=== PATIENT | male | born 1955 | race Caucasian/White ===

== ENCOUNTER 2018-08-02 18:07 | Emergency (ER) | payer MEDICARE, BC ==
[2018-08-02] MEDS ORDERED: Sodium Chloride 0.9% 1000 ML 1,000 ML IV STA (18:44)
--- NOTE | 2018-08-02 18:52 | ERPHSYRPT ---
- History of Present Illness Source: patient, family Exam Limitations: no limitations Patient Subjective Stated Complaint: pt was sent down from [facility] for a near syncope episode while waiting to be seen. he states he has not felt well for a couple days, with chill, cough, aches,not eating well Triage Nursing Assessment: pt alert, resp easy, skin w/d/p. no edema, chest clear Timing/Duration: other (cough general malaise 2 days near syncope at [facility] just prior to arrival) Modifying Factors: Improves With: other (not eating well frequent cough) Associated Symptoms: shortness of breath, diaphoresis, cough, fever (low-grade temperature this Wednesday), loss of appetite, malaise, weakness, other (near syncopal episode at [facility]), No nausea, No vomiting, No abdominal pain, No heartburn, No chest pain, No headaches, No rash, No seizure Hx Tetanus, Diphtheria Vaccination/Date Given: (UNSURE) Hx Influenza Vaccination/Date Given: Yes Hx Pneumococcal Vaccination/Date Given: No Immunizations Up to Date: Yes <TATI KAMARA - Last Filed: 08/02/18 19:04> <VALENCIA GONZALEZ - Last Filed: 08/02/18 21:07> - History of Present Illness Time Seen by Provider: 08/02/18 18:39 Physician History: This is a 63-year-old white male with history of hyperlipidemia, high blood pressure, depression, pneumonia, bronchitis, kidney stones Patient is brought from [facility] patient apparently has been having a cough for approximately 2 days he has not been feeling well he's not been eating well , he's had a low-grade temperature . He denies any chest pain he apparently had a near syncopal episode at [facility]. He states he did not pass out he did not fall. He was promptly sent to the emergency room from [facility]. Past medical history includes hyperlipidemia, high blood pressure, pneumonia, bronchitis, kidney stones Past surgical history right ankle Social history rare alcohol denies tobacco or illicit drug use. Past medical history includes (TATI KAMARA) Pt is positive for Influenza A and Strep throat. Tamiflu 75mg and Amoxicillin 500mg were ordered in the ED. Prescriptions will be e-scribed, before pt's d/c. (VALENCIA GONZALEZ) Allergies/Adverse Reactions: Tetracyclines Allergy (Mild, Verified 08/02/18 18:19) Hives Home Medications: Allopurinol 100 mg [Zyloprim 100 mg] 100 mg PO DAILY 10/24/14 [History] Ascorbic Acid [Vitamin C] 1,000 mg PO DAILY 10/24/14 [History] Aspirin 81 gm Chew [Baby Aspirin 81 mg Chew] 81 mg PO DAILY 10/24/14 [ History] Finasteride 5 mg [Proscar 5 MG] 5 mg PO DAILY 10/24/14 [History] Furosemide 40 mg PO DAILY PRN PRN 10/24/14 [History] Lisinopril 10 mg [Zestril 10 MG] 10 mg PO DAILY 10/24/14 [History] Niacin 500 mg [Niaspan 500 mg] 500 mg PO DAILY 10/24/14 [History] - Review of Systems Constitutional: Fever, Malaise, Weakness, No Chills, No Fatigue, No Lethargy, No Night Sweats, No Weight Loss Eyes: No Symptoms Ears, Nose, & Throat: No Symptoms, No Ear Pain, No Ear Discharge, No Hearing Changes, No Tinnitus, No Nose Pain, No Nose Congestion, No Nose Discharge, No Sinus Drainage, No Epistaxis, No Mouth Pain, No Mouth Swelling, No Loose Teeth, No Throat Pain, No Throat Swelling, No Hoarse, No Painful Swallowing, No Snoring , No Stridor, No Other Respiratory: Cough, No Cyanosis, No Dyspnea, No Dyspnea on Exertion (WEISS), No Stridor, No Wheezing Cardiac: Other (near syncopal episode at [facility]), No Chest Pain, No Edema, No Syncope Abdominal/Gastrointestinal: Appetite Changes (decreased appetite), No Abdominal Pain, No Nausea, No Vomiting, No Diarrhea, No Constipation, No Hematemesis, No Hematochezia, No Melena, No Dysphagia Genitourinary Symptoms: No Dysuria Musculoskeletal: No Back Pain, No Neck Pain Skin: No Rash Neurological: Other (near syncopal episode at [facility]), No Focal Weakness, No Gait Changes, No Headache, No Irritability, No Lethargy, No Paralysis, No Parasthesia, No Seizure, No Sensory Changes, No Speech Changes, No Tics, No Tremors, No Vertigo Psychological: No Symptoms Endocrine: No Symptoms All Other Systems: Reviewed and Negative <TATI KAMARA - Last Filed: 08/02/18 19:04> - Past Medical History Pertinent Past Medical History: No Neurological History: No Pertinent History ENT History: No Pertinent History Cardiac History: High Cholesterol, Hypertension Respiratory History: Bronchitis, Pneumonia Endocrine Medical History: No Pertinent History Musculoskeletal History: No Pertinent History GI Medical History: No Pertinent History History: No Pertinent History Psycho-Social History: Depression Male Reproductive Disorders: No Pertinent History Other Medical History: kidney stones - Past Surgical History Past Surgical History: No Neuro Surgical History: No Pertinent History Cardiac: No Pertinent History Respiratory: No Pertinent History Gastrointestinal: No Pertinent History Genitourinary: No Pertinent History Musculoskeletal: Orthopedic Surgery Male Surgical History: No Pertinent History - Social History Smoking Status: Former smoker How long have you smoked: 40 Exposure to second hand smoke: No Drug Use: none Patient Lives Alone: No <TATI KAMARA - Last Filed: 08/02/18 19:04> - Physical Exam General Appearance: mild distress, alert, No moderate distress, No severe distress, No anxiety, No lethargy, No cachetic, No obese, No thin Eye Exam: PERRL/EOMI, eyes nml inspection Ears, Nose, Throat Exam: normal ENT inspection, TMs normal, pharynx normal, moist mucous membranes Neck Exam: normal inspection, non-tender, supple, full range of motion Respiratory Exam: normal breath sounds, lungs clear, No respiratory distress Cardiovascular Exam: regular rate/rhythm, normal heart sounds, normal peripheral pulses, capillary refill <2 sec Gastrointestinal/Abdomen Exam: soft, normal bowel sounds, No tenderness, No mass Back Exam: normal inspection, normal range of motion, No CVA tenderness, No vertebral tenderness Extremity Exam: normal inspection, normal range of motion, pelvis stable Neurologic Exam: alert, oriented x 3, cooperative, 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, normal mood/affect, nml cerebellar function, nml station & gait, sensation nml, No motor deficits Skin Exam: pale Lymphatic Exam: No adenopathy SpO2 Interpretation: normal (97%) SpO2: 97 <TATI KAMARA - Last Filed: 08/02/18 19:04> - Nursing Vital Signs Nursing Vital Signs: Initial Vital Signs Temperature 98.3 F 08/02/18 18:11 Pulse Rate 77 08/02/18 18:11 Respiratory Rate 18 08/02/18 18:11 Blood Pressure 114/78 08/02/18 18:11 O2 Sat by Pulse Oximetry 97 08/02/18 18:11 Pain Scale Pain Intensity 0 - Course Nursing assessment & vital signs reviewed: Yes EKG Interpreted by Me: RATE (77 bpm), Sinus Rhythm, Left [place] Deviation, Other ( EKG: Sinus rhythm, 77 bpm, left axis deviation, no acute ST or T wave changes noted) <TATI KAMARA - Last Filed: 08/02/18 19:04> Ordered Tests: Active Orders 24 hr Category Date Time Status EKG-ER Only STAT Care 08/02/18 18:44 Active IV Insertion STAT Care 08/02/18 18:44 Active Orthostatic Vital Signs STAT Care 08/02/18 18:46 Active CHEST 1 VIEW (PORTABLE) Stat Exams 08/02/18 18:45 Taken AMYLASE Stat Lab 08/02/18 18:50 Completed BLOOD CULTURE Stat Lab 08/02/18 19:05 Received CBC W DIFF Stat Lab 08/02/18 18:50 Completed CMP Stat Lab 08/02/18 18:50 Completed LIPASE Stat Lab 08/02/18 18:50 Completed Lactic Acid Stat Lab 08/02/18 18:44 Completed TROPONIN Q3H Lab 08/02/18 18:50 Completed TROPONIN Q3H Lab 08/02/18 21:45 Ordered TROPONIN Q3H Lab 08/03/18 00:45 Ordered TROPONIN Q3H Lab 08/03/18 03:45 Ordered TROPONIN Q3H Lab 08/03/18 06:45 Ordered UA W/RFX UR CULTURE Stat Lab 08/02/18 20:50 Received Medication Summary Discontinued Medications Generic Name Dose Route Start Last Admin Trade Name Freq PRN Reason Stop Dose Admin Amoxicillin 500 mg 08/02/18 20:01 08/02/18 20:22 Amoxil 500 Mg PO 08/02/18 20:02 500 mg STAT ONE Administration Sodium Chloride 1,000 mls @ 999 mls/hr 08/02/18 18:44 08/02/18 18:58 Sodium Chloride 0.9% 1000 Ml IV 08/02/18 19:44 999 mls/hr .Q1H1M STA Administration Sodium Chloride Confirm 08/02/18 18:56 Sodium Chloride 0.9% 1000 Ml Administered 08/02/18 18:57 Dose 1,000 mls @ ud .ROUTE .[facility] ONE Oseltamivir Phosphate 75 mg 08/02/18 20:03 08/02/18 20:37 Tamiflu 75mg Capsule PO 08/02/18 20:04 75 mg STAT ONE Administration Oseltamivir Phosphate Confirm 08/02/18 20:34 Tamiflu 75mg Capsule Administered 08/02/18 20:35 Dose 75 mg PO .[facility] ONE Lab/Rad Data: Laboratory Result Diagrams 08/02/18 18:50 08/02/18 18:50 Laboratory Results 08/02/18 08/02/18 08/02/18 Range/Units 19:00 18:50 18:50 WBC (4.0-10.5) K/mm3 RBC (4.1-5.6) M/mm3 Hgb (12.5-18.0) gm/dl Hct (42-50) % MCV (78-100) fl MCH (26-32) pg MCHC (32-36) g/dl RDW (11.5-14.0) % Plt Count (150-450) K/mm3 MPV (6-9.5) fl Gran % (36.0-66.0) % Eos # (Auto) (0-0.5) Absolute Lymphs (auto) (1.0-4.6) Absolute Monos (auto) (0.0-1.3) Lymphocytes % (24.0-44.0) % Monocytes % (0.0-12.0) % Eosinophils % (0.00-5.0) % Basophils % (0.0-0.4) % Absolute Granulocytes (1.4-6.9) Basophils # (0-0.4) Sodium 138 (137-145) mmol/L Potassium 3.5 (3.5-5.1) mmol/L Chloride 105 (98-107) mmol/L Carbon Dioxide 25 (22-30) mmol/L Anion Gap 12.3 (5-15) MEQ/L BUN 16 (9-20) mg/dL Creatinine 1.16 (0.66-1.25) mg/dL Estimated GFR > 60.0 ML/MIN Glucose 142 H (74-106) mg/dL Lactic Acid (0.4-2.0) Calcium 9.1 (8.4-10.2) mg/dL Total Bilirubin 0.80 (0.2-1.3) mg/dL AST 36 (17-59) U/L ALT 33 (0-50) U/L Alkaline Phosphatase 79 (38-126) U/L Troponin I < 0.012 (0.000-0.034) ng/mL Serum Total Protein 7.5 (6.3-8.2) g/dL Albumin 4.2 (3.5-5.0) g/dL Amylase 69 (30-110) U/L Lipase 81 (23-300) U/L Influenza Type A Ag POSITIVE (NEGATIVE) Influenza Type B Ag NEGATIVE (NEGATIVE) RSV (PCR) NEGATIVE (Negative) 08/02/18 08/02/18 Range/Units 18:50 18:44 WBC 3.0 L (4.0-10.5) K/mm3 RBC 5.01 (4.1-5.6) M/mm3 Hgb 16.2 (12.5-18.0) gm/dl Hct 46.7 (42-50) % MCV 93.2 (78-100) fl MCH 32.3 H (26-32) pg MCHC 34.7 (32-36) g/dl RDW 12.7 (11.5-14.0) % Plt Count 151 (150-450) K/mm3 MPV 9.8 H (6-9.5) fl Gran % 56.3 (36.0-66.0) % Eos # (Auto) 0.07 (0-0.5) Absolute Lymphs (auto) 0.86 L (1.0-4.6) Absolute Monos (auto) 0.38 (0.0-1.3) Lymphocytes % 28.5 (24.0-44.0) % Monocytes % 12.6 H (0.0-12.0) % Eosinophils % 2.3 (0.00-5.0) % Basophils % 0.3 (0.0-0.4) % Absolute Granulocytes 1.70 (1.4-6.9) Basophils # 0.01 (0-0.4) Sodium (137-145) mmol/L Potassium (3.5-5.1) mmol/L Chloride (98-107) mmol/L Carbon Dioxide (22-30) mmol/L Anion Gap (5-15) MEQ/L BUN (9-20) mg/dL Creatinine (0.66-1.25) mg/dL Estimated GFR ML/MIN Glucose (74-106) mg/dL Lactic Acid 1.5 (0.4-2.0) Calcium (8.4-10.2) mg/dL Total Bilirubin (0.2-1.3) mg/dL AST (17-59) U/L ALT (0-50) U/L Alkaline Phosphatase (38-126) U/L Troponin I (0.000-0.034) ng/mL Serum Total Protein (6.3-8.2) g/dL Albumin (3.5-5.0) g/dL Amylase (30-110) U/L Lipase (23-300) U/L Influenza Type A Ag (NEGATIVE) Influenza Type B Ag (NEGATIVE) RSV (PCR) (Negative) - Progress Progress: improved <TATI KAMARA - Last Filed: 08/02/18 19:04> - Progress Progress: unchanged Will see patient in: office Counseled pt/family regarding: lab results, need for follow-up <VALENCIA GONZALEZ - Last Filed: 08/02/18 21:07> - Progress Progress Note: 08/02/18 19:02 The patient's case is discussed with Dr. Gonzalez. She will assume the patient's care secondary to shift change. (TATI KAMARA) Pt's labs showed positive H1N1, and Strep pyogenes. Pt did get a dose of Amoxicillin 500mg and Tamiflu 75 mg at the ED, prior to d/c. 08/02/18 21:03 (VALENCIA GONZALEZ) <TATI KAMARA - Last Filed: 08/02/18 19:04> - Departure Time of Disposition: 21:04 Departure Disposition: Home Critical Care Time: No <VALENCIA GONZALEZ - Last Filed: 08/02/18 21:07> - Departure Clinical Impression: Influenza A (H1N1), Strep pharyngitis Condition: Stable Referrals: LUIS DANIEL [Primary Care Provider] - Additional Instructions: Pt's was informed about the need to give Tamiflu to all exposed family members, and to call her PCP for it. Prescriptions: Amoxicillin 500 mg PO TID 10 Days #30 capsule Oseltamivir 75 mg [Tamiflu 75MG Capsule] 75 mg PO BID 5 Days #10 cap
[2018-08-02 18:54] LABS: BASOPHIL % 0.3 % (0.0-0.4); Basophil (Absolute #) 0.01 (0-0.4); Eosinophil % 2.3 % (0.00-5.0); Eosinophil (Absolute #) 0.07 (0-0.5); Granulocytes % 56.3 % (36.0-66.0); Hematocrit 46.7 % (42-50); Hemoglobin 16.2 gm/dl (12.5-18.0); Lymphocyte (Absolute #) 0.86 (1.0-4.6); Lymphocytes % 28.5 % (24.0-44.0); Mean Cell Volume 93.2 fl (78-100); Mean Corpuscular Hemoglobin 32.3 pg (26-32); Mean Corpuscular Hgb Concent. 34.7 g/dl (32-36); Mean Platelet Volume 9.8 fl (6-9.5); Monocyte (Absolute #) 0.38 (0.0-1.3); Monocytes % 12.6 % (0.0-12.0); Platelet Count 151 K/mm3 (150-450); Red Blood Count 5.01 M/mm3 (4.1-5.6); Red Cell Distribution Width 12.7 % (11.5-14.0)
[2018-08-02] MEDS ORDERED: Sodium Chloride 0.9% 1000 ML 1,000 ML ONE (18:56)
[2018-08-02 18:59] LABS: ALBUMIN 4.2 g/dL (3.5-5.0); ALKALINE PHOSPHATASE 79 U/L (38-126); AMYLASE 69 U/L (30-110); ANION GAP 12.3 MEQ/L (5-15); BLOOD UREA NITROGEN 16 mg/dL (9-20); CHLORIDE 105 mmol/L (98-107); Calcium 9.1 mg/dL (8.4-10.2); Carbon Dioxide 25 mmol/L (22-30); Creatinine 1 1.16 mg/dL (0.66-1.25); Glucose 142 mg/dL (74-106); LIPASE 81 U/L (23-300); Potassium 3.5 mmol/L (3.5-5.1); SGOT/AST 36 U/L (17-59); SGPT/ALT 33 U/L (0-50); SODIUM 138 mmol/L (137-145); Total Protein 7.5 g/dL (6.3-8.2)
[2018-08-02 19:49] LABS: INFLUENZA B NEGATIVE (NEGATIVE); RESPIRATORY SYNCTIAL VIRUS NEGATIVE (Negative)
[2018-08-02] MEDS ORDERED: AMOXIL 500 MG PO ONE (20:01)
[2018-08-02 20:02] LABS: INFLUENZA A POSITIVE (NEGATIVE)
[2018-08-02] MEDS ORDERED: Tamiflu 75MG Capsule PO ONE ×2 (20:03→20:34)
[2018-08-02 21:08] LABS: Appearance SLIGHTLY CLOUDY (CLEAR); Bacteria NONE SEEN /HPF (NEGATIVE); Bilirubin NEGATIVE (NEGATIVE); Blood NEGATIVE Ery/ul (0-5); Glucose NEGATIVE (NEGATIVE); Ketones TRACE (NEGATIVE); Leukocyte Esterase NEGATIVE (NEGATIVE); Mucus SLIGHT /HPF (NEGATIVE); Nitrite NEGATIVE (NEGATIVE); Protein,Urine Dip NEGATIVE (Negative); RBC 0-2 /HPF (0-2); Urobilinogen 4 mg/dL (0-1)
[2018-08-02 21:20] VITALS: BP 134/81; PULSE 88; O2SAT 97
--- NOTE | 2018-08-03 09:12 | XRAY ---
Indication: Cough and weakness. Near syncopal episode. Comparison: October 24, 2014. Portable chest remains clear again with a few tiny calcified granulomas. Heart and mediastinal structures within normal limits. Bony thorax intact again with mild degenerative changes. Impression: Stable nonacute chest with chronic features.
== END 2018-08-02 21:22 | disposition home or self-care (01) ==
LOC: ED 18:07
DX: J10.1 Influenza due to other identified influenza virus with other respiratory manifestations (principal); J02.0 Streptococcal pharyngitis; I10 Essential (primary) hypertension; E78.00 Pure hypercholesterolemia, unspecified; F32.9 Major depressive disorder, single episode, unspecified; E78.5 Hyperlipidemia, unspecified; R06.02 Shortness of breath
CPT/HCPCS: 36000; 36415; 71045; 80053; 81001; 82150; 83605; 83690; 84484; 85025; 87040; 87631; 93005; 96360; 99284; A9270-GY

== ENCOUNTER 2019-08-05 16:53 | Emergency (ER) | payer MEDICARE, OTHER ==
[2019-08-05] MEDS ORDERED: solu-CORTEF 250MG IM STA (17:07)
[2019-08-05] MEDS ORDERED: BENADRYL 50 MG/ML IM ONE (17:08)
[2019-08-05] MEDS ORDERED: BENADRYL 50 MG/ML ONE (17:11)
[2019-08-05] MEDS ORDERED: solu-CORTEF 250MG ONE (17:11)
--- NOTE | 2019-08-05 17:21 | ERPHSYRPT ---
- History of Present Illness Time Seen by Provider: 08/05/19 17:19 Exam Limitations: no limitations Patient Subjective Stated Complaint: Pt states "I have been sick for about 6 days and I had a high fever the first day and I am exhausted and getting more and more tired. This morning my upper lip was swollen." Triage Nursing Assessment: Pt presented alert and oriented X 3, skin pwd Pt ambualtes with an upright steady gait, able to speak in clear full sentences pt upper lip swollen on the right side, pt denied any difficulty breathing. Physician History: Pt states "I have been sick for about 6 days and I had a high fever the first day and I am exhausted and getting more and more tired. This morning my upper lip was swollen." c/o feeling of throat swelling Timing/Duration: today (lip swelling), day(s) (fever and malaise) Severity: moderate Associated Symptoms: fever, headaches, malaise Allergies/Adverse Reactions: Tetracyclines Allergy (Mild, Verified 08/02/18 18:19) Hives Home Medications: Allopurinol 100 mg [Zyloprim 100 mg] 100 mg PO DAILY 10/24/14 [History] Ascorbic Acid [Vitamin C] 1,000 mg PO DAILY 10/24/14 [History] Aspirin 81 gm Chew [Baby Aspirin 81 mg Chew] 81 mg PO DAILY 10/24/14 [ History] Finasteride 5 mg [Proscar 5 MG] 5 mg PO DAILY 10/24/14 [History] Furosemide 40 mg PO DAILY PRN PRN 10/24/14 [History] Lisinopril 10 mg [Zestril 10 MG] 10 mg PO DAILY 10/24/14 [History] Niacin 500 mg [Niaspan 500 mg] 500 mg PO DAILY 10/24/14 [History] Sertraline HCl 25 mg PO DAILY 08/05/19 [History] Hx Tetanus, Diphtheria Vaccination/Date Given: No Hx Influenza Vaccination/Date Given: Yes Hx Pneumococcal Vaccination/Date Given: Yes Immunizations Up to Date: Yes - Review of Systems Constitutional: Fever, Fatigue, Malaise, No Chills Eyes: No Symptoms Ears, Nose, & Throat: Other (lip swelling) Respiratory: No Cough, No Dyspnea Cardiac: No Chest Pain, No Edema, No Syncope Abdominal/Gastrointestinal: No Abdominal Pain, No Nausea, No Vomiting, No Diarrhea Genitourinary Symptoms: No Dysuria Musculoskeletal: No Back Pain, No Neck Pain Skin: No Rash Neurological: No Dizziness, No Focal Weakness, No Sensory Changes Psychological: No Symptoms Endocrine: No Symptoms All Other Systems: Reviewed and Negative - Past Medical History Pertinent Past Medical History: Yes Neurological History: No Pertinent History ENT History: No Pertinent History Cardiac History: High Cholesterol, Hypertension Respiratory History: Bronchitis, Pneumonia Endocrine Medical History: No Pertinent History Musculoskeletal History: No Pertinent History GI Medical History: No Pertinent History History: No Pertinent History Psycho-Social History: Depression Male Reproductive Disorders: No Pertinent History Other Medical History: kidney stones - Past Surgical History Past Surgical History: Yes Neuro Surgical History: No Pertinent History Cardiac: No Pertinent History Respiratory: No Pertinent History Gastrointestinal: No Pertinent History Genitourinary: No Pertinent History Musculoskeletal: Orthopedic Surgery Male Surgical History: No Pertinent History - Social History Smoking Status: Former smoker How long have you smoked: 40 Exposure to second hand smoke: No Drug Use: none Patient Lives Alone: No - Nursing Vital Signs Nursing Vital Signs: Initial Vital Signs Temperature 98.0 F 08/05/19 17:04 Pulse Rate 98 H 08/05/19 17:04 Respiratory Rate 22 08/05/19 17:04 Blood Pressure 152/87 08/05/19 17:04 O2 Sat by Pulse Oximetry 96 08/05/19 17:04 Pain Scale Pain Intensity 0 - Physical Exam General Appearance: no apparent distress, alert Eye Exam: PERRL/EOMI, eyes nml inspection Ears, Nose, Throat Exam: normal ENT inspection, TMs normal, pharynx normal, moist mucous membranes, other (swollen right lower lip) Neck Exam: normal inspection, non-tender, supple, full range of motion Respiratory Exam: normal breath sounds, lungs clear, No respiratory distress Cardiovascular Exam: regular rate/rhythm, normal heart sounds, normal peripheral pulses Gastrointestinal/Abdomen Exam: soft, normal bowel sounds, No tenderness, No mass Back Exam: normal inspection, normal range of motion, No CVA tenderness, No vertebral tenderness Extremity Exam: normal inspection, normal range of motion, pelvis stable Neurologic Exam: alert, oriented x 3, cooperative, normal mood/affect, nml cerebellar function, nml station & gait, sensation nml, No motor deficits Skin Exam: normal color, warm, dry, No rash Lymphatic Exam: No adenopathy SpO2: 96 Ordered Tests: Active Orders 24 hr Category Date Time Status CBC W DIFF Stat Lab 08/05/19 17:21 Completed CMP Stat Lab 08/05/19 17:21 Completed Lactic Acid Stat Lab 08/05/19 18:25 Completed UA W/RFX UR CULTURE Stat Lab 08/05/19 17:58 Received Medication Summary Generic Name Dose Route Start Last Admin Trade Name Freq PRN Reason Stop Dose Admin Sodium Chloride 1,000 mls @ 999 mls/hr 08/05/19 18:18 08/05/19 18:26 Sodium Chloride 0.9% 1000 Ml IV 08/05/19 19:18 999 mls/hr .Q1H1M STA Administration Sodium Chloride 1,000 mls @ 100 mls/hr 08/05/19 18:30 Sodium Chloride 0.9% 1000 Ml IV 09/04/19 18:29 .Q10H LEONORA Sodium Chloride 1,000 mls @ 999 mls/hr 08/05/19 18:21 08/05/19 18:25 Sodium Chloride 0.9% 1000 Ml IV 08/05/19 19:21 Not Given .Q1H1M STA Discontinued Medications Generic Name Dose Route Start Last Admin Trade Name Freq PRN Reason Stop Dose Admin Diphenhydramine HCl 50 mg 08/05/19 17:08 08/05/19 17:16 Benadryl 50 Mg/Ml IM 08/05/19 17:09 50 mg STAT ONE Administration Diphenhydramine HCl Confirm 08/05/19 17:11 Benadryl 50 Mg/Ml Administered 08/05/19 17:12 Dose 50 mg .ROUTE .STK-MED ONE Hydrocortisone Sodium Succinate 250 mg 08/05/19 17:07 08/05/19 17:15 Solu-Cortef 250mg IM 08/05/19 17:08 250 mg Q6H STA Administration Hydrocortisone Sodium Succinate Confirm 08/05/19 17:11 Solu-Cortef 250mg Administered 08/05/19 17:12 Dose 250 mg .ROUTE .STK-MED ONE Potassium Bicarbonate 25 meq 08/05/19 18:31 K-Lyte 25 Meq PO 08/05/19 18:32 STAT ONE Lab/Rad Data: Laboratory Result Diagrams 08/05/19 17:21 08/05/19 17:21 Laboratory Results 08/05/19 08/05/19 08/05/19 Range/Units 18:25 17:58 17:21 WBC (4.0-10.5) K/mm3 RBC (4.1-5.6) M/mm3 Hgb (12.5-18.0) gm/dl Hct (42-50) % MCV (78-100) fl MCH (26-32) pg MCHC (32-36) g/dl RDW (11.5-14.0) % Plt Count (150-450) K/mm3 MPV (7.5-11.0) fl Gran % (36.0-66.0) % Eos # (Auto) (0-0.5) Absolute Lymphs (auto) (1.0-4.6) Absolute Monos (auto) (0.0-1.3) Lymphocytes % (24.0-44.0) % Monocytes % (0.0-12.0) % Eosinophils % (0.00-5.0) % Basophils % (0.0-0.4) % Absolute Granulocytes (1.4-6.9) Basophils # (0-0.4) Sodium 135 L (137-145) mmol/L Potassium 3.1 L (3.5-5.1) mmol/L Chloride 101 (98-107) mmol/L Carbon Dioxide 25 (22-30) mmol/L Anion Gap 12.5 (5-15) MEQ/L BUN 16 (9-20) mg/dL Creatinine 1.05 (0.66-1.25) mg/dL Estimated GFR > 60.0 ML/MIN Glucose 142 H (74-106) mg/dL Lactic Acid 1.6 (0.4-2.0) Calcium 8.6 (8.4-10.2) mg/dL Total Bilirubin 0.90 (0.2-1.3) mg/dL AST 30 (17-59) U/L ALT 33 (0-50) U/L Alkaline Phosphatase 81 (38-126) U/L Serum Total Protein 7.0 (6.3-8.2) g/dL Albumin 3.6 (3.5-5.0) g/dL Influenza Type A Ag NEGATIVE (NEGATIVE) Influenza Type B Ag NEGATIVE (NEGATIVE) RSV (PCR) NEGATIVE (Negative) Group A Strep Antibody NEGATIVE (NEGATIVE) 08/05/19 Range/Units 17:21 WBC 4.6 (4.0-10.5) K/mm3 RBC 5.05 (4.1-5.6) M/mm3 Hgb 15.9 (12.5-18.0) gm/dl Hct 45.6 (42-50) % MCV 90.3 (78-100) fl MCH 31.5 (26-32) pg MCHC 34.9 (32-36) g/dl RDW 12.9 (11.5-14.0) % Plt Count 170 (150-450) K/mm3 MPV 10.0 (7.5-11.0) fl Gran % 76.4 H (36.0-66.0) % Eos # (Auto) 0.30 (0-0.5) Absolute Lymphs (auto) 0.49 L (1.0-4.6) Absolute Monos (auto) 0.30 (0.0-1.3) Lymphocytes % 10.6 L (24.0-44.0) % Monocytes % 6.5 (0.0-12.0) % Eosinophils % 6.5 H (0.00-5.0) % Basophils % 0.0 (0.0-0.4) % Absolute Granulocytes 3.52 (1.4-6.9) Basophils # 0 (0-0.4) Sodium (137-145) mmol/L Potassium (3.5-5.1) mmol/L Chloride (98-107) mmol/L Carbon Dioxide (22-30) mmol/L Anion Gap (5-15) MEQ/L BUN (9-20) mg/dL Creatinine (0.66-1.25) mg/dL Estimated GFR ML/MIN Glucose (74-106) mg/dL Lactic Acid (0.4-2.0) Calcium (8.4-10.2) mg/dL Total Bilirubin (0.2-1.3) mg/dL AST (17-59) U/L ALT (0-50) U/L Alkaline Phosphatase (38-126) U/L Serum Total Protein (6.3-8.2) g/dL Albumin (3.5-5.0) g/dL Influenza Type A Ag (NEGATIVE) Influenza Type B Ag (NEGATIVE) RSV (PCR) (Negative) Group A Strep Antibody (NEGATIVE) - Departure Departure Disposition: Home Clinical Impression: Acute allergic reaction Qualifiers: Encounter type: initial encounter Qualified Code(s): T78.40XA - Allergy, unspecified, initial encounter Allergic angioedema Qualifiers: Encounter type: initial encounter Qualified Code(s): T78.3XXA - Angioneurotic edema, initial encounter Condition: Stable Critical Care Time: No Referrals: ULIS DANIEL [Primary Care Provider] - Instructions: Angioedema, Angioedema (DC), Adverse Drug Reactions, Adult (DC) Additional Instructions: You have adverse drug reaction due to lisinopril which has caused swelling of your lips please hold lisinopril until you see your primary care physician on Wednesday. Please take Benadryl 25 mg every 4 hours if you develop more lip swelling and hives. We have send Medrol Dosepak for you to the pharmacy, which you can pick it up tomorrow. If your symptoms get worse or if you have a difficulty in breathing. Please come back to the emergency room. Discharge/Care Plan JULIEN BULL was seen on 08/05/19 in the Emergency Room. The patient was counseled regarding Diagnosis,Lab results, Imaging studies, need for follow up and when to return to the Emergency Room. Prescriptions given: Discharge Note I have spoken with the patient and/or caregivers. I have explained the patient' s condition, diagnosis and treatment plan based on the information available to me at this time. I have answered the patient's and/or caregiver's questions and addressed any concerns. The patient and/or caregivers have as good understanding of the patient's diagnosis, condition and treatment plan as can be expected at this point. The vital signs have been stable. The patient's condition is stable and appropriate for discharge from the emergency department. The patient will pursue further outpatient evaluation with the primary care physician or other designated or consulting physician as outlined in the discharge instructions. The patient and/or caregivers are agreeable to this plan of care and follow-up instructions have been explained in detail. The patient and/or caregivers have received these instruction. The patient/and or caregivers are aware that any significant change in condition or worsening of symptoms should prompt an immediate return to this or the closest emergency department or call 911. JULIEN BULL was seen on 08/05/19 n the Emergency Room. At that time you were treated for an emergent condition, during your visit Laboratory, Radiology and/or other procedures may have been ordered. It is very important that you follow-up with your Primary Care Physician LUIS DANIEL within the next 24-48 hours to review your Emergency Room visit and the final results of testing that was ordered. Some test results such as Urine Cultures, Blood Cultures, and other cultures if ordered will not be finalized for 24-48 hours. If you do not have a Primary Care Provider please call the medical records department at [phone] ext [phone] to obtain a copy of your results or you may sign into our patient portal to obtain these results by visiting us @ [email or web address] and completing the following steps: 1. Click on the Patient Portal link 2. Click the Patient Self Enrollment Link to complete the enrollment form and entering your 3. Once the enrollment form is completed you will receive an email with a temporary ID and password at the email address you provided. 4. Next choose a user name and password. Your user name must be at least 4 characters long and your password must be at least 4 characters long. 5. Choose a security question from the list and provide your answer to the question. If you already have signed into the Health Portal you may access your Health Care Information 25/01 by the following steps: 1. Login to our website @ [email or web address] 2. Enter your original user name and password. FAQS The [facility] Health Portal is an online tool that contains your Lab Results, Radiology Reports, Visit History, Discharge Instructions and Health Summary Lab and Radiology Results will not be available for 72 hours on the portal. The Portal is a secure site, passwords are encryted and URLs are re-written so they cannot be copied and pasted. You and authorized family members are the only ones who can access your Portal. Also there is a timeout feature that protects your information if you leave the Portal page open. If you have technical difficulty please use the Contact Us link on the page this will allow you to submit any questions you have regarding the Portal or you may contact the Medical Record Department at [phone] ext [phone]. Prescriptions: Methylprednisolone Packet [Medrol Dosepack] 4 mg PO UD #30 packet
[2019-08-05 18:00] LABS: Absolute Neutrophil Ct (ANC) 3.52 (1.4-6.9); Basophil (Absolute #) 0 (0-0.4); Eosinophil % 6.5 % (0.00-5.0); Hematocrit 45.6 % (42-50); Hemoglobin 15.9 gm/dl (12.5-18.0); Lymphocyte (Absolute #) 0.49 (1.0-4.6); Lymphocytes % 10.6 % (24.0-44.0); Mean Cell Volume 90.3 fl (78-100); Mean Corpuscular Hemoglobin 31.5 pg (26-32); Mean Corpuscular Hgb Concent. 34.9 g/dl (32-36); Monocytes % 6.5 % (0.0-12.0); Neutrophil % 76.4 % (36.0-66.0); Platelet Count 170 K/mm3 (150-450); Red Blood Count 5.05 M/mm3 (4.1-5.6); Red Cell Distribution Width 12.9 % (11.5-14.0); White Blood Count 4.6 K/mm3 (4.0-10.5)
[2019-08-05 18:13] LABS: ALBUMIN 3.6 g/dL (3.5-5.0); ALKALINE PHOSPHATASE 81 U/L (38-126); ANION GAP 12.5 MEQ/L (5-15); BLOOD UREA NITROGEN 16 mg/dL (9-20); CHLORIDE 101 mmol/L (98-107); Calcium 8.6 mg/dL (8.4-10.2); Carbon Dioxide 25 mmol/L (22-30); Creatinine 1 1.05 mg/dL (0.66-1.25); Glucose 142 mg/dL (74-106); Potassium 3.1 mmol/L (3.5-5.1); SGOT/AST 30 U/L (17-59); SGPT/ALT 33 U/L (0-50); SODIUM 135 mmol/L (137-145)
[2019-08-05] MEDS ORDERED: Sodium Chloride 0.9% 1000 ML 1,000 ML IV STA ×2 (18:18→18:21)
[2019-08-05] MEDS ORDERED: Sodium Chloride 0.9% 1000 ML 1,000 ML ONE ×2 (18:22→18:56)
[2019-08-05] MEDS ORDERED: K-LYTE 25 MEQ PO ONE (18:31)
[2019-08-05 18:42] LABS: INFLUENZA A NEGATIVE (NEGATIVE); INFLUENZA B NEGATIVE (NEGATIVE); RESPIRATORY SYNCTIAL VIRUS NEGATIVE (Negative)
[2019-08-05] MEDS ORDERED: K-LYTE 25 MEQ ONE (18:56)
[2019-08-05 19:00] LABS: Appearance CLOUDY (CLEAR); Bilirubin NEGATIVE (NEGATIVE); Blood MODERATE Ery/ul (0-5); Epithelial Cells RARE /HPF (FEW); Glucose NEGATIVE (NEGATIVE); Ketones NEGATIVE (NEGATIVE); Leukocyte Esterase NEGATIVE (NEGATIVE); Mucus MANY /HPF (NEGATIVE); Nitrite NEGATIVE (NEGATIVE); Protein,Urine Dip 100 (Negative); Specific Gravity 1.028 (1.005-1.025); Urobilinogen 4 mg/dL (0-1)
[2019-08-05] MEDS: Sodium Chloride 0.9% 1000 ML 1,000 ML IV SCH ×2 (19:08→19:37)
[2019-08-05 19:13] VITALS: O2SAT 98
[2019-08-05 19:43] LABS: RBC >101 /HPF (0-2)
[2019-08-05 19:53] VITALS: BP 128/81; PULSE 74
[2019-08-06 01:22] LABS: Slide Review 1 YES
== END 2019-08-05 20:03 | disposition home or self-care (01) ==
LOC: ED 16:53
DX: T78.40XA Allergy, unspecified, initial encounter (principal); T78.3XXA Angioneurotic edema, initial encounter; I10 Essential (primary) hypertension; E78.00 Pure hypercholesterolemia, unspecified; Z79.899 Other long term (current) drug therapy
CPT/HCPCS: 36000; 36415; 80053; 81001; 83605; 85025; 87086; 87631; 87651; 96360; 96361; 96372; 99284; J1200; J1720; A9270-GY

== ENCOUNTER 2019-11-07 14:27 | Emergency (ER) | payer MEDICARE, OTHER ==
[2019-11-07] MEDS ORDERED: Pepcid 20 MG VIAL IV ONE ×2 (14:37→14:45)
[2019-11-07] MEDS ORDERED: BENADRYL 50 MG/ML ONE (14:37)
[2019-11-07] MEDS ORDERED: PROVENTIL 2.5 MG/3 ML NEB IH ONE (14:38)
[2019-11-07] MEDS ORDERED: solu-MEDROL 125 MG ONE (14:38)
[2019-11-07] MEDS ORDERED: BENADRYL 50 MG/ML IV ONE (14:45)
[2019-11-07] MEDS ORDERED: solu-MEDROL 125 MG IV ONE (14:45)
[2019-11-07] MEDS ORDERED: PROVENTIL 2.5 MG/3 ML NEB IH SCH (15:00)
--- NOTE | 2019-11-07 15:06 | ERPHSYRPT ---
- History of Present Illness Time Seen by Provider: 11/07/19 14:33 Source: patient Exam Limitations: no limitations Patient Subjective Stated Complaint: Pt states "This happened before and they took me off my lisinopril and put me on verapamyl. About 11 am this morning my lip started to swell, my voice got scratcy and I am itchy." Triage Nursing Assessment: Pt presnted alert and oriented X 3, skin pwd PT ambulates with an upright steady gait, able to speak in clear full sentences. Pt voice deep and scratcy, pt clearing throat often. Pt upper lip swollen more on the left htan the right. Physician History: 64 years old male with history of hypertension, hyperlipidemia, gout presented in the ER with chief complaint of left upper lip swelling sudden onset around 11 AM today and gradually worsening. Is also having some scratchiness in the throat and some raspy voice. Denies any difficulty breathing though. Patient reports having similar symptoms few months back and was taken off of lisinopril , started on verapamil at that time. He denies any swelling of tongue or floor of mouth. Timing/Duration: today, sudden, worse Severity: moderate Modifying Factors: Improves With: nothing Associated Symptoms: denies symptoms Allergies/Adverse Reactions: Tetracyclines Allergy (Mild, Verified 08/02/18 18:19) Hives lisinopril Adverse Reaction (Severe, Verified 11/07/19 14:43) Swelling of Face Home Medications: Allopurinol 100 mg [Zyloprim 100 mg] 100 mg PO DAILY 10/24/14 [History] Ascorbic Acid [Vitamin C] 1,000 mg PO DAILY 10/24/14 [History] Aspirin 81 gm Chew [Baby Aspirin 81 mg Chew] 81 mg PO DAILY 10/24/14 [ History] Finasteride 5 mg [Proscar 5 MG] 5 mg PO DAILY 10/24/14 [History] Niacin 500 mg [Niaspan 500 mg] 500 mg PO DAILY 10/24/14 [History] Sertraline HCl 25 mg PO DAILY 08/05/19 [History] Verapamil HCl [Verapamil ER] 120 mg PO DAILY 11/07/19 [History] Hx Tetanus, Diphtheria Vaccination/Date Given: No Hx Influenza Vaccination/Date Given: Yes Hx Pneumococcal Vaccination/Date Given: Yes Immunizations Up to Date: Yes Travel Risk - International Travel Have you traveled outside of the country in past 3 weeks: No Have you or anyone close to you been diagnosed with or: No Do your reside in a community with a known COVID-19 case?: Yes If Yes where:: [place] - Coronavirus Screening Has patient experienced Coronavirus symptoms: No - Review of Systems Constitutional: No Symptoms Eyes: No Symptoms Ears, Nose, & Throat: No Symptoms Respiratory: Wheezing Cardiac: No Symptoms Abdominal/Gastrointestinal: No Symptoms Genitourinary Symptoms: No Symptoms Musculoskeletal: No Symptoms Skin: No Symptoms Neurological: No Symptoms Psychological: No Symptoms Endocrine: No Symptoms Hematologic/Lymphatic: No Symptoms Immunological/Allergic: No Symptoms - Past Medical History Pertinent Past Medical History: Yes Neurological History: No Pertinent History ENT History: No Pertinent History Cardiac History: High Cholesterol, Hypertension Respiratory History: Bronchitis, Pneumonia Endocrine Medical History: No Pertinent History Musculoskeletal History: No Pertinent History GI Medical History: No Pertinent History History: No Pertinent History Psycho-Social History: Depression Male Reproductive Disorders: No Pertinent History Other Medical History: kidney stones - Past Surgical History Past Surgical History: Yes Neuro Surgical History: No Pertinent History Cardiac: No Pertinent History Respiratory: No Pertinent History Gastrointestinal: No Pertinent History Genitourinary: No Pertinent History Musculoskeletal: Orthopedic Surgery Male Surgical History: No Pertinent History - Social History Smoking Status: Former smoker How long have you smoked: 40 Exposure to second hand smoke: No Drug Use: none Patient Lives Alone: No - Nursing Vital Signs Nursing Vital Signs: Initial Vital Signs Temperature 97.8 F 11/07/19 14:32 Pulse Rate 70 11/07/19 14:32 Respiratory Rate 20 11/07/19 14:32 Blood Pressure 155/80 11/07/19 14:32 O2 Sat by Pulse Oximetry 98 11/07/19 14:32 Pain Scale Pain Intensity 0 - Physical Exam General Appearance: no apparent distress Eye Exam: PERRL/EOMI, eyes nml inspection Ears, Nose, Throat Exam: TMs normal, pharynx normal, other (Moderate swelling left upper lip. No swelling of tongue, tonsillar pillar or uvula. Posterior pharynx well visible.) Neck Exam: normal inspection Respiratory Exam: normal breath sounds, lungs clear Cardiovascular Exam: regular rate/rhythm, normal heart sounds Gastrointestinal/Abdomen Exam: soft Extremity Exam: normal inspection Neurologic Exam: alert, oriented x 3, cooperative Skin Exam: normal color SpO2 Interpretation: normal SpO2: 98 O2 Delivery: Room Air - Course Nursing assessment & vital signs reviewed: Yes Ordered Tests: Active Orders 24 hr Category Date Time Status Respiratory Therapy Assessment ONCE RT 11/07/19 14:44 Active Medication Summary Discontinued Medications Generic Name Dose Route Start Last Admin Trade Name Jeronimoq PRN Reason Stop Dose Admin Albuterol Sulfate Confirm 11/07/19 14:38 Proventil 2.5 Mg/3 Ml Neb Administered 11/07/19 14:39 Dose 2.5 mg IH .STK-MED ONE Albuterol Sulfate 2.5 mg 11/07/19 15:00 11/07/19 14:40 Proventil 2.5 Mg/3 Ml Neb IH 12/07/19 14:59 2.5 mg Q4HRT LEONORA Administration Diphenhydramine HCl Confirm 11/07/19 14:37 Benadryl 50 Mg/Ml Administered 11/07/19 14:38 Dose 50 mg .ROUTE .STK-MED ONE Diphenhydramine HCl 25 mg 11/07/19 14:45 11/07/19 14:48 Benadryl 50 Mg/Ml IV 11/07/19 14:46 25 mg STAT ONE Administration Epinephrine 0.5 ml 11/07/19 15:52 11/07/19 15:53 Racepinephrine Inh Solution 2.25% IH 11/07/19 15:53 0.5 ml STAT ONE Administration Epinephrine Confirm 11/07/19 15:51 Racepinephrine Inh Solution 2.25% Administered 11/07/19 15:52 Dose 0.5 ml IH .STK-MED ONE Famotidine Confirm 11/07/19 14:37 Pepcid 20 Mg Vial Administered 11/07/19 14:38 Dose 40 mg IV .STK-MED ONE Famotidine 40 mg 11/07/19 14:45 11/07/19 14:47 Pepcid 20 Mg Vial IV 11/07/19 14:46 40 mg STAT ONE Administration Methylprednisolone Sodium Succinate Confirm 11/07/19 14:38 Solu-Medrol 125 Mg Administered 11/07/19 14:39 Dose 125 mg .ROUTE .STK-MED ONE Methylprednisolone Sodium Succinate 125 mg 11/07/19 14:45 11/07/19 14:48 Solu-Medrol 125 Mg IV 11/07/19 14:46 125 mg STAT ONE Administration Sodium Chloride Confirm 11/07/19 15:51 Sodium Chloride 3 Ml Ud Nebules Administered 11/07/19 15:52 Dose 3 ml IH .STK-MED ONE - Progress Progress: improved, re-examined Progress Note: 64 years old is evaluated for upper lip swelling on the left side. He had a subjective feeling of sort nurse in the throat and difficulty breathing and given albuterol neb treatment followed by racemic epi along with Solu-Medrol/ Benadryl/Pepcid. Swelling is improved. No swelling of the tongue. Patient is observed for more than 4 hours with no rebound or increase in the swelling or difficulty breathing noticed. Patient is evaluated multiple times and did not show any signs of worsening. Patient is been taking verapamil which is probably linked with angioedema. He is advised to stop taking verapamil and call his doctor in the morning to be switched to a different antihypertensive. Patient did not have any lower lip per floor of mouth swelling are signs showing compromised airway and I think he is stable for discharge with outpatient follow-up. Discussed signs symptoms of worsening needing return to ER which he seems understanding. 11/07/19 18:40 Counseled pt/family regarding: diagnosis, need for follow-up - Departure Departure Disposition: Home Clinical Impression: Allergic angioedema Qualifiers: Encounter type: initial encounter Qualified Code(s): T78.3XXA - Angioneurotic edema, initial encounter Condition: Stable Critical Care Time: Yes Critical Care Time(excluding separately billable procedures): Critical 30-74 mins Referrals: LUIS DANIEL [Primary Care Provider] - (1 day for reevaluation) Instructions: Angioedema (DC) Additional Instructions: Stop taking verapamil. Call your doctor in the morning to discuss medication and may need to be started on a new blood pressure medication. Continue with antiallergic medication and steroids. Return to ER for increasing swelling of lip, tongue,'s throat swelling/scratchiness/difficulty breathing etc. Prescriptions: Diphenhydramine HCl [Benadryl Allergy] 25 mg PO Q6HPRN PRN #20 tablet PRN Reason: Allergies Albuterol 8 gm Mdi Hfa [Ventolin Hfa MDI] 8 gm IH Q4H #1 hfa.aer.ad Famotidine 20 mg [Pepcid 20 MG] 20 mg PO BID #10 tablet predniSONE [Prednisone] 50 mg PO DAILY #5 tablet
[2019-11-07] MEDS ORDERED: Sodium Chloride 3 ML UD NEBULES IH ONE (15:51)
[2019-11-07] MEDS ORDERED: Racepinephrine INH Solution 2.25% IH ONE ×2 (15:51→15:52)
[2019-11-07 18:40] VITALS: O2SAT 98
[2019-11-07 18:41] VITALS: BP 117/75; PULSE 70
== END 2019-11-07 18:49 | disposition home or self-care (01) ==
LOC: ED 14:27
DX: T78.3XXA Angioneurotic edema, initial encounter (principal); I10 Essential (primary) hypertension; E78.5 Hyperlipidemia, unspecified; M10.9 Gout, unspecified; Z79.899 Other long term (current) drug therapy; Z87.442 Personal history of urinary calculi
CPT/HCPCS: 36000; 94640; 96374; 96375; 99284; 99291; J1200; J2930; J7609; A9270-GY

== ENCOUNTER 2021-02-24 16:45 | Observation (INO) | payer MEDICARE, OTHER ==
--- NOTE | 2021-02-24 16:51 | ERPHSYRPT ---
- History of Present Illness Time Seen by Provider: 02/24/21 16:51 Physician History: This is a 65-year-old white male who has recently been tested positive for COVID-19 infection. He was supposed to be off of quarantine today. However, he has weakness, generalized aches and pains and his states there is a little more confusion than usual. Patient has a history of hypertension and elevated cholesterol. Patient denies chest pain. He has very little shortness of breath. He has mild cough. He has no localized abdominal pain. He has had no nausea vomiting or diarrhea. His main issue is his generalized aches and pains. Timing/Duration: day(s) Activities at Onset: none Severity of Dyspnea-Max: mild Severity of Dyspnea-Current: mild Modifying Factors: Improves With: coughing (Mild) Associated Symptoms: cough, loss of appetite, weakness, No chest pain/discomfort Allergies/Adverse Reactions: Tetracyclines Allergy (Mild, Verified 02/24/21 17:24) Hives lisinopril Adverse Reaction (Severe, Verified 02/24/21 17:24) Swelling of Face Hx Tetanus, Diphtheria Vaccination/Date Given: No Hx Influenza Vaccination/Date Given: Yes Hx Pneumococcal Vaccination/Date Given: Yes Travel Risk - International Travel Have you traveled outside of the country in past 3 weeks: No - Coronavirus Screening Are you exhibiting any of the following symptoms?: Yes Symptoms: Shortness of Breath, Headaches/Body Aches/Fatigue - Vaccine Status Have you recieved a Covid-19 vaccination: No - Review of Systems Constitutional: Weakness Eyes: No Symptoms Ears, Nose, & Throat: No Symptoms Respiratory: No Symptoms Cardiac: No Symptoms Abdominal/Gastrointestinal: No Symptoms Genitourinary Symptoms: No Symptoms Musculoskeletal: Arthralgias, Myalgias Skin: No Symptoms Neurological: No Symptoms Psychological: No Symptoms Endocrine: No Symptoms Hematologic/Lymphatic: No Symptoms Immunological/Allergic: No Symptoms All Other Systems: Reviewed and Negative - Past Medical History Pertinent Past Medical History: Yes Neurological History: No Pertinent History ENT History: No Pertinent History Cardiac History: High Cholesterol, Hypertension Respiratory History: Bronchitis, Pneumonia Endocrine Medical History: No Pertinent History Musculoskeletal History: No Pertinent History GI Medical History: No Pertinent History History: No Pertinent History Psycho-Social History: Depression Male Reproductive Disorders: No Pertinent History Other Medical History: kidney stones - Past Surgical History Past Surgical History: Yes Neuro Surgical History: No Pertinent History Cardiac: No Pertinent History Respiratory: No Pertinent History Gastrointestinal: No Pertinent History Genitourinary: No Pertinent History Musculoskeletal: Orthopedic Surgery Male Surgical History: No Pertinent History - Social History Smoking Status: Former smoker How long have you smoked: 40 Exposure to second hand smoke: No Drug Use: none Patient Lives Alone: No - Nursing Vital Signs Nursing Vital Signs: Initial Vital Signs O2 Sat by Pulse Oximetry 95 02/24/21 16:45 Pain Scale Pain Intensity 3 - Physical Exam General Appearance: mild distress, alert, anxiety Eye Exam: PERRL/EOMI, eyes nml inspection Ears, Nose, Throat Exam: hearing grossly normal Neck Exam: normal inspection, non-tender, supple, full range of motion Respiratory Exam: normal breath sounds, lungs clear, airway intact, No chest tenderness, No respiratory distress Cardiovascular/Chest Exam: normal heart sounds, regular rate/rhythm Abdominal/Gastrointestinal Exam: soft, normal bowel sounds, No tenderness, No guarding Rectal Exam: not done Extremity Exam: non-tender, normal range of motion, normal inspection Neurologic Exam: alert, oriented x 3, cooperative, waist presser II-XII nml as tested Skin Exam: normal color, warm, dry Lymphatic Exam: No adenopathy SpO2 Interpretation: borderline oxygenation O2 Delivery: Room Air - Course Nursing assessment & vital signs reviewed: Yes EKG Interpreted by Me: RATE (54), Sinus Rhythm, NORMAL AXIS, LAFB, NORMAL INTERVALS, NORMAL QRS, NORMAL ST-T, Other (No acute ischemic changes on today's EKG. There is a new left anterior fascicular block when compared to EKG on 08/02/2018.) Ordered Tests: Active Orders 24 hr Category Date Time Status Coarse Wire Drawer STAT Care 02/24/21 17:05 Active EKG-ER Only STAT Care 02/24/21 17:04 Active IV Insertion STAT Care 02/24/21 17:04 Active Pulse Oximetry (ED) STAT Care 02/24/21 17:07 Active CHEST 1 VIEW (PORTABLE) Stat Exams 02/24/21 17:04 Taken ABG [ARTERIAL BLOOD GASES] Stat Lab 02/24/21 17:30 Completed BLOOD CULTURE Stat Lab 02/24/21 17:00 Received CBC W DIFF Stat Lab 02/24/21 17:00 Completed CMP Stat Lab 02/24/21 17:00 Completed INFLUENZA A+B GENNA Stat Lab 02/24/21 17:04 Completed Lactic Acid Stat Lab 02/24/21 17:35 Completed Lactic Acid Stat Lab 02/24/21 19:37 Completed MAGNESIUM Stat Lab 02/24/21 17:00 Completed [place] Screen Stat Lab 02/24/21 19:00 Completed NT PRO BNP Stat Lab 02/24/21 17:00 Completed TROPONIN Q3H Lab 02/24/21 17:00 Completed TROPONIN Q3H Lab 02/24/21 20:09 Received TROPONIN Q3H Lab 02/24/21 23:15 Ordered TROPONIN Q3H Lab 02/25/21 02:15 Ordered TROPONIN Q3H Lab 02/25/21 05:15 Ordered UA W/RFX UR CULTURE Stat Lab 02/24/21 17:07 Ordered Transfer Order Routine Transfer 02/24/21 Ordered Medication Summary Generic Name Dose Route Start Last Admin Trade Name Freq PRN Reason Stop Dose Admin Sodium Chloride 1,000 mls @ 50 mls/hr 02/24/21 17:15 02/24/21 17:36 Sodium Chloride 0.9% 1000 Ml IV 03/26/21 17:14 50 mls/hr .Q20H LEONORA Administration Discontinued Medications Generic Name Dose Route Start Last Admin Trade Name Freq PRN Reason Stop Dose Admin Hydrocodone Bitart/Acetaminophen 15 ml 02/24/21 20:30 Hydrocodone-Acetamin 2.5-108/5 Ml Solution PO 02/24/21 20:31 STAT STA Dexamethasone Sodium Phosphate 8 mg 02/24/21 20:30 Decadron 4 Mg Inj IV 02/24/21 20:31 STAT ONE Enoxaparin Sodium 40 mg 02/24/21 20:30 Enoxaparin Sodium SQ 02/24/21 20:31 STAT ONE Lab/Rad Data: Laboratory Result Diagrams 02/24/21 17:00 02/24/21 17:00 Laboratory Results 02/24/21 02/24/21 02/24/21 Range/Units 19:37 19:00 17:35 WBC (4.0-10.5) K/mm3 RBC (4.1-5.6) M/mm3 Hgb (12.5-18.0) gm/dl Hct (42-50) % MCV (78-100) fl MCH (26-32) pg MCHC (32-36) g/dl RDW (11.5-14.0) % Plt Count (150-450) K/mm3 MPV (7.5-11.0) fl Gran % (36.0-66.0) % Eos # (Auto) (0-0.5) Absolute Lymphs (auto) (1.0-4.6) Absolute Monos (auto) (0.0-1.3) Lymphocytes % (24.0-44.0) % Monocytes % (0.0-12.0) % Eosinophils % (0.00-5.0) % Basophils % (0.0-0.4) % Absolute Granulocytes (1.4-6.9) Basophils # (0-0.4) Puncture Site pCO2 (35-45) mmHg pO2 (75-100) mmHg Base Excess (-2.0-2.0) O2 Saturation (94-100) g/dF ABG pH (7.35-7.45) ABG HCO3 (22-28) ABG O2 Sat (Measured) (95-100) % Galileo Test A-a Gradient a/A Ratio Hemoglobin Carboxyhemoglobin (0.0-6.9) % THgb Methemoglobin (1.4-1.5) % Temperature C POC O2 Flow Rate % Sodium (137-145) mmol/L Potassium (3.5-5.1) mmol/L Chloride (98-107) mmol/L Carbon Dioxide (22-30) mmol/L Anion Gap (5-15) MEQ/L BUN (9-20) mg/dL Creatinine (0.66-1.25) mg/dL Estimated GFR ML/MIN Glucose (74-106) mg/dL Lactic Acid 1.6 3.2 H (0.4-2.0) Calcium (8.4-10.2) mg/dL Magnesium (1.6-2.3) mg/dL Total Bilirubin (0.2-1.3) mg/dL AST (17-59) U/L ALT (0-50) U/L Alkaline Phosphatase (38-126) U/L Troponin I (0.000-0.034) ng/mL NT-Pro-B Natriuret Pep (0-900) pg/mL Serum Total Protein (6.3-8.2) g/dL Albumin (3.5-5.0) g/dL Monoscreen NEGATIVE (Negative) Influenza Type A Ag (NEGATIVE) Influenza Type B Ag (NEGATIVE) Group A Strep Antibody (NEGATIVE) 02/24/21 02/24/21 02/24/21 Range/Units 17:30 17:30 17:04 WBC (4.0-10.5) K/mm3 RBC (4.1-5.6) M/mm3 Hgb (12.5-18.0) gm/dl Hct (42-50) % MCV (78-100) fl MCH (26-32) pg MCHC (32-36) g/dl RDW (11.5-14.0) % Plt Count (150-450) K/mm3 MPV (7.5-11.0) fl Gran % (36.0-66.0) % Eos # (Auto) (0-0.5) Absolute Lymphs (auto) (1.0-4.6) Absolute Monos (auto) (0.0-1.3) Lymphocytes % (24.0-44.0) % Monocytes % (0.0-12.0) % Eosinophils % (0.00-5.0) % Basophils % (0.0-0.4) % Absolute Granulocytes (1.4-6.9) Basophils # (0-0.4) Puncture Site RIGHT RADIAL pCO2 22 L (35-45) mmHg pO2 67 L (75-100) mmHg Base Excess -1.2 (-2.0-2.0) O2 Saturation 94.1 (94-100) g/dF ABG pH 7.55 H* (7.35-7.45) ABG HCO3 19.2 L (22-28) ABG O2 Sat (Measured) 96.7 (95-100) % Galileo Test YES A-a Gradient 55 a/A Ratio 0.55 Hemoglobin 16.3 Carboxyhemoglobin 1.7 (0.0-6.9) % THgb Methemoglobin 0.9 L (1.4-1.5) % Temperature 37.0 C POC O2 Flow Rate 21 % Sodium (137-145) mmol/L Potassium 3.8 (3.5-5.1) mmol/L Chloride (98-107) mmol/L Carbon Dioxide (22-30) mmol/L Anion Gap (5-15) MEQ/L BUN (9-20) mg/dL Creatinine (0.66-1.25) mg/dL Estimated GFR ML/MIN Glucose (74-106) mg/dL Lactic Acid (0.4-2.0) Calcium (8.4-10.2) mg/dL Magnesium (1.6-2.3) mg/dL Total Bilirubin (0.2-1.3) mg/dL AST (17-59) U/L ALT (0-50) U/L Alkaline Phosphatase (38-126) U/L Troponin I (0.000-0.034) ng/mL NT-Pro-B Natriuret Pep (0-900) pg/mL Serum Total Protein (6.3-8.2) g/dL Albumin (3.5-5.0) g/dL Monoscreen (Negative) Influenza Type A Ag NEGATIVE (NEGATIVE) Influenza Type B Ag NEGATIVE (NEGATIVE) Group A Strep Antibody NOT DETECTED (NEGATIVE) 02/24/21 02/24/21 02/24/21 Range/Units 17:00 17:00 17:00 WBC 11.5 H (4.0-10.5) K/mm3 RBC 5.25 (4.1-5.6) M/mm3 Hgb 16.4 (12.5-18.0) gm/dl Hct 48.1 (42-50) % MCV 91.6 (78-100) fl MCH 31.2 (26-32) pg MCHC 34.1 (32-36) g/dl RDW 12.5 (11.5-14.0) % Plt Count 213 (150-450) K/mm3 MPV 11.0 (7.5-11.0) fl Gran % 88.9 H (36.0-66.0) % Eos # (Auto) 0 (0-0.5) Absolute Lymphs (auto) 0.66 L (1.0-4.6) Absolute Monos (auto) 0.62 (0.0-1.3) Lymphocytes % 5.7 L (24.0-44.0) % Monocytes % 5.4 (0.0-12.0) % Eosinophils % 0.0 (0.00-5.0) % Basophils % 0.0 (0.0-0.4) % Absolute Granulocytes 10.20 H (1.4-6.9) Basophils # 0 (0-0.4) Puncture Site pCO2 (35-45) mmHg pO2 (75-100) mmHg Base Excess (-2.0-2.0) O2 Saturation (94-100) g/dF ABG pH (7.35-7.45) ABG HCO3 (22-28) ABG O2 Sat (Measured) (95-100) % Galileo Test A-a Gradient a/A Ratio Hemoglobin Carboxyhemoglobin (0.0-6.9) % THgb Methemoglobin (1.4-1.5) % Temperature C POC O2 Flow Rate % Sodium 136 L (137-145) mmol/L Potassium 3.7 (3.5-5.1) mmol/L Chloride 103 (98-107) mmol/L Carbon Dioxide 20 L (22-30) mmol/L Anion Gap 16.6 H (5-15) MEQ/L BUN 28 H (9-20) mg/dL Creatinine 1.17 (0.66-1.25) mg/dL Estimated GFR > 60.0 ML/MIN Glucose 110 H (74-106) mg/dL Lactic Acid (0.4-2.0) Calcium 8.6 (8.4-10.2) mg/dL Magnesium 2.1 (1.6-2.3) mg/dL Total Bilirubin 1.30 (0.2-1.3) mg/dL AST 47 (17-59) U/L ALT 59 H (0-50) U/L Alkaline Phosphatase 79 (38-126) U/L Troponin I 0.034 (0.000-0.034) ng/mL NT-Pro-B Natriuret Pep 3080 H (0-900) pg/mL Serum Total Protein 6.7 (6.3-8.2) g/dL Albumin 3.6 (3.5-5.0) g/dL Monoscreen (Negative) Influenza Type A Ag (NEGATIVE) Influenza Type B Ag (NEGATIVE) Group A Strep Antibody (NEGATIVE) - Progress Progress: re-examined Air Movement: good Progress Note: 02/24/21 19:11 Chest x-ray shows bibasilar groundglass opacities left greater than right 02/24/21 20:38 Medical decision making: This patient has significant Covid symptoms. The worst for the patient is his weakness and generalized myalgias and arthralgias. To my examination does not seem to be confused as much as uncomfortable. His troponin level is within normal limits. His room air oxygen saturation level is between 93 and 95% on room air. I feel the patient be best served by placing him in observation on the Covid unit. I discussed this with Dr. Antoine. He agrees. We will start him on Lovenox low dose, Decadron, hydrocodone elixir, remdesivir and intravenous fluids. Blood Culture(s) Obtained: Yes Antibiotics given: No Discussed with Dr.: Other (Arash) Counseled pt/family regarding: lab results, diagnosis, rad results - Departure Departure Disposition: Observation Clinical Impression: COVID-19 virus infection, Weakness Condition: Fair Critical Care Time: No Referrals: LUIS DANIEL [Primary Care Provider] -
[2021-02-24] MEDS ORDERED: Sodium Chloride 0.9% 1000 ML 1,000 ML IV SCH (17:15)
[2021-02-24] MEDS ORDERED: Sodium Chloride 0.9% 1000 ML 1,000 ML ONE (17:31)
[2021-02-24 17:34] LABS: A-aADO2 55; ABG HEMOGLOBIN 16.3; ABG POTASSIUM 3.8 (3.5-5.1); ARTERIAL BLD GAS O2 SATURATION 96.7 % (95-100); ARTERIAL BLOOD GAS BASE EXCESS -1.2 (-2.0-2.0); ARTERIAL BLOOD GAS FIO2 21 %; ARTERIAL BLOOD GAS PCO2 22 mmHg (35-45); ARTERIAL BLOOD GAS PO2 67 mmHg (75-100); CARBOXYHEMOGLOBIN 1.7 % THgb (0.0-6.9); HCO3- 19.2 (22-28); HGB O2 SAT 94.1 g/dF (94-100); Methhemoglobin 0.9 % (1.4-1.5)
[2021-02-24 17:35] LABS: ABG SITE RIGHT RADIAL; ALLEN TEST OK? YES; ARTERIAL BLOOD GAS pH 7.55 (7.35-7.45)
[2021-02-24 17:38] LABS: Basophil (Absolute #) 0 (0-0.4); Eosinophil (Absolute #) 0 (0-0.5); Hematocrit 48.1 % (42-50); Hemoglobin 16.4 gm/dl (12.5-18.0); Lymphocyte (Absolute #) 0.66 (1.0-4.6); Lymphocytes % 5.7 % (24.0-44.0); Mean Cell Volume 91.6 fl (78-100); Mean Corpuscular Hemoglobin 31.2 pg (26-32); Mean Corpuscular Hgb Concent. 34.1 g/dl (32-36); Monocyte (Absolute #) 0.62 (0.0-1.3); Monocytes % 5.4 % (0.0-12.0); Neutrophil % 88.9 % (36.0-66.0); Platelet Count 213 K/mm3 (150-450); Red Blood Count 5.25 M/mm3 (4.1-5.6); Red Cell Distribution Width 12.5 % (11.5-14.0); White Blood Count 11.5 K/mm3 (4.0-10.5)
[2021-02-24 17:56] LABS: INFLUENZA A NEGATIVE (NEGATIVE); INFLUENZA B NEGATIVE (NEGATIVE)
[2021-02-24 18:23] LABS: ALBUMIN 3.6 g/dL (3.5-5.0); ALKALINE PHOSPHATASE 79 U/L (38-126); ANION GAP 16.6 MEQ/L (5-15); BLOOD UREA NITROGEN 28 mg/dL (9-20); CHLORIDE 103 mmol/L (98-107); Calcium 8.6 mg/dL (8.4-10.2); Carbon Dioxide 20 mmol/L (22-30); Creatinine 1 1.17 mg/dL (0.66-1.25); EST GLOMERULAR FILTRATION RATE > 60.0 ML/MIN; Glucose 110 mg/dL (74-106); MAGNESIUM 2.1 mg/dL (1.6-2.3); NT PRO BNP 3080 pg/mL (0-900); Potassium 3.7 mmol/L (3.5-5.1); SGOT/AST 47 U/L (17-59); SGPT/ALT 59 U/L (0-50); SODIUM 136 mmol/L (137-145); Total Protein 6.7 g/dL (6.3-8.2)
[2021-02-24] MEDS ORDERED: ENOXAPARIN SODIUM SQ ONE (20:30)
[2021-02-24] MEDS ORDERED: Decadron 4 MG INJ IV ONE (20:30)
[2021-02-24] MEDS ORDERED: HYDROCODONE-ACETAMIN 2.5-108/5 ML SOLUTION PO STA (20:30)
[2021-02-24] MEDS ORDERED: Decadron 4 MG INJ ONE (21:09)
[2021-02-24] MEDS ORDERED: HYDROCODONE-ACETAMIN 2.5-108/5 ML SOLUTION ONE (21:10)
[2021-02-24] MEDS ORDERED: TYLENOL 325 MG PO PRN (22:45)
[2021-02-24] MEDS ORDERED: Zofran 4 MG/2 ML VIAL IV PRN (22:45)
[2021-02-24] MEDS ORDERED: REMDESIVIR 200 MG in Sodium Chloride 0.9% 250 ML 250 ML IV ONE (22:45)
[2021-02-24] MEDS ORDERED: HYDROCODONE-ACETAMIN 10-325 MG PO PRN (23:22)
[2021-02-24] MEDS ORDERED: REMDESIVIR IV ONE (23:25)
[2021-02-24] MEDS ORDERED: Sodium Chloride 0.9% 250 ML 250 ML IV ONE (23:25)
[2021-02-24] MEDS: ENOXAPARIN SODIUM SQ SCH (23:47)
[2021-02-24] MEDS: Sodium Chloride 0.9% 1000 ML 1,000 ML IV SCH (23:47)
[2021-02-25 00:12] LABS: Appearance SLIGHTLY CLOUDY (CLEAR); Bacteria RARE /HPF (NEGATIVE); Bilirubin NEGATIVE (NEGATIVE); Blood NEGATIVE Ery/ul (0-5); Glucose NEGATIVE (NEGATIVE); Ketones NEGATIVE (NEGATIVE); Leukocyte Esterase NEGATIVE (NEGATIVE); Mucus SLIGHT /HPF (NEGATIVE); Nitrite NEGATIVE (NEGATIVE); Protein,Urine Dip 30 (Negative); RBC 0-2 /HPF (0-2); Specific Gravity 1.023 (1.005-1.025); Urobilinogen 4 mg/dL (0-1); WBC 0-2 /HPF (0-5)
[2021-02-25 05:26] LABS: Absolute Neutrophil Ct (ANC) 6.99 (1.4-6.9); Basophil (Absolute #) 0 (0-0.4); Eosinophil (Absolute #) 0 (0-0.5); Hematocrit 46.4 % (42-50); Hemoglobin 15.7 gm/dl (12.5-18.0); Lymphocyte (Absolute #) 0.38 (1.0-4.6); Mean Cell Volume 92.6 fl (78-100); Mean Corpuscular Hemoglobin 31.3 pg (26-32); Mean Corpuscular Hgb Concent. 33.8 g/dl (32-36); Mean Platelet Volume 10.6 fl (7.5-11.0); Monocyte (Absolute #) 0.29 (0.0-1.3); Monocytes % 3.8 % (0.0-12.0); Neutrophil % 91.2 % (36.0-66.0); Platelet Count 188 K/mm3 (150-450); Red Blood Count 5.01 M/mm3 (4.1-5.6); Red Cell Distribution Width 12.6 % (11.5-14.0); White Blood Count 7.7 K/mm3 (4.0-10.5)
[2021-02-25 06:16] LABS: ALBUMIN 3.2 g/dL (3.5-5.0); ALKALINE PHOSPHATASE 67 U/L (38-126); ANION GAP 10.6 MEQ/L (5-15); BLOOD UREA NITROGEN 28 mg/dL (9-20); CHLORIDE 104 mmol/L (98-107); Calcium 7.8 mg/dL (8.4-10.2); Carbon Dioxide 24 mmol/L (22-30); Creatinine 1 1.01 mg/dL (0.66-1.25); EST GLOMERULAR FILTRATION RATE > 60.0 ML/MIN; Glucose 171 mg/dL (74-106); Potassium 4.1 mmol/L (3.5-5.1); SGOT/AST 37 U/L (17-59); SGPT/ALT 50 U/L (0-50); SODIUM 135 mmol/L (137-145); Total Protein 6.4 g/dL (6.3-8.2)
--- NOTE | 2021-02-25 08:49 | XRAY ---
Indication: Short of breath. Positive Covid 19. Comparison: August 02, 2018. Portable chest demonstrates new mild diffuse bilateral interstitial alveolar opacities left greater than right. No consolidation/large effusion. Heart not enlarged. Bony thorax intact again with degenerative changes.
[2021-02-25] MEDS ORDERED: Sodium Chloride 0.9% 10 ML FLUSH Syringe IV PRN (09:15)
[2021-02-25] MEDS ORDERED: Ativan 1 MG PO PRN (09:24)
[2021-02-25 09:47] LABS: Slide Review 1 YES
[2021-02-25] MEDS ORDERED: FEXOFENADINE HCL 30 MG PO SCH (10:00)
[2021-02-25] MEDS: Decadron 4 MG INJ IV SCH (10:04)
[2021-02-25] MEDS: ENOXAPARIN SODIUM SQ SCH ×2 (10:04→22:36)
[2021-02-25] MEDS: CLARITIN 10 MG PO SCH (10:04)
[2021-02-25] MEDS: Pepcid 20 MG PO SCH ×2 (10:05→22:36)
[2021-02-25] MEDS: Sodium Chloride 0.9% 1000 ML 1,000 ML IV SCH (10:32)
--- NOTE | 2021-02-25 14:30 | HP ---
CHIEF COMPLAINT: Severe achiness and pain in his muscles. COVID for seven days. HISTORY OF PRESENT ILLNESS: The patient is a 65 year-old white male who was brought to the emergency room by his . She stated he is a little bit more confused and has been hurting all over. He had COVID with some shortness of breath, fatigue and now extreme muscle aching. He has been taking Zithromax and Dexamethasone 6 mg b.i.d. for seven days which he has a few more days left on that. Pepcid 20 b.i.d., Mikayla q.d., melatonin and he also started on some Ivermectin someone told him to get that. PAST MEDICAL HISTORY: The patient is kind of a poor historian. He denies having any abdominal pain issues in the past or muscle pain issues in the past. Not being treated for any chronic illnesses. REVIEW OF SYSTEMS: HEENT: Slightly hard of hearing. CHEST: No shortness of breath. No chest pain. CVS: No exertional chest pain or palpitations. ABDOMEN: This morning when I came in he was having severe diffuse abdominal pain which was relieved with a bowel movement. He said he did sleep and pain was much better after he got a Vicodin. SOCIAL/FAMILY HISTORY: He lives with his close to the hospital. He is retired, nonsmoker. PHYSICAL EXAMINATION: The patient is a tall, sturdy-looking 65 year-old white male who after a bowel movement was in no pain and eating. VITAL SIGNS: Temperature 97F, pulse 80, respirations 20. Weight 113 kg. HEENT: Pupils equal and reactive to light. NECK: Supple without adenopathy. CHEST: Clear. CVS: No murmurs or gallops. ABDOMEN: Obese, very tender all over which has resolved. EXTREMITIES: Decreased hair. Decreased pulses in the feet, warm and dry. IMPRESSION: The patient has COVID with COVID myopathy perhaps. However the fact that he was on a large amount of Ivermectin and it could also give him the side effects of that and I told him to throw that away. Will try to see if he can eat today if he able.
[2021-02-25] MEDS: Sodium Chloride 0.9% 10 ML FLUSH Syringe IV SCH ×2 (16:14→22:37)
[2021-02-25] MEDS ORDERED: REMDESIVIR 100 MG in Sodium Chloride 0.9% 100 ML BAG 100 ML IV SCH (22:00)
[2021-02-26] MEDS: ENOXAPARIN SODIUM SQ SCH (09:12)
[2021-02-26] MEDS: CLARITIN 10 MG PO SCH (09:12)
[2021-02-26] MEDS: Pepcid 20 MG PO SCH (09:12)
[2021-02-26] MEDS: Decadron 4 MG INJ IV SCH (09:12)
[2021-02-26 11:13] VITALS: O2SAT 93
[2021-02-26 11:46] VITALS: BP 153/83; PULSE 80
== END 2021-02-26 12:00 | disposition home or self-care (01) ==
LOC: ED 16:45 → MED SURG 22:42
PROVIDERS: ADMIT Family Medicine; ATTEND Family Medicine
DX: U07.1 COVID-19 (principal); M79.10 Myalgia, unspecified site; R41.0 Disorientation, unspecified; Z79.899 Other long term (current) drug therapy; R06.02 Shortness of breath; R53.83 Other fatigue; G72.9 Myopathy, unspecified; I10 Essential (primary) hypertension; E78.00 Pure hypercholesterolemia, unspecified
CPT/HCPCS: 36000; 36415; 36600; 71045; 80053; 81001; 82375; 82803; 83605; 83735; 83880; 84484; 85025; 85379; 86308; 87040; 87400; 87651; 93005; 93041; 93268; 94760; 94762; 96374; 99284; G0378; J1100; J1650; A9270-GY

== ENCOUNTER 2022-01-08 09:55 | Day surgery (SDC) | payer MEDICARE, OTHER ==
--- NOTE | 2022-01-02 12:39 | HP ---
DATE OF SURGERY: 01/08/2022 HISTORY OF PRESENT ILLNESS: The patient is a 66-year-old male who presents with complaints of dysphagia. He feels a lump in the throat. He reports a swallowing test two to three years ago. The patient reports last colonoscopy was ten years ago and it was normal. PAST MEDICAL HISTORY: Hypertension, gout, depression, benign prostatic hypertrophy. PAST SURGICAL HISTORY: [place] teeth. ALLERGIES: TETRACYCLINE. LISINOPRIL. MEDICATIONS: Clonidine, finasteride, allopurinol, Lasix, sertraline. FAMILY HISTORY: Heart failure. SOCIAL HISTORY: Negative. REVIEW OF SYSTEMS: CONSTITUTIONAL: Denies fever or chills. CHEST: Denies shortness of breath. CVS: Denies chest pain. ABDOMEN: Denies abdominal pain, nausea, vomiting, diarrhea, constipation or rectal bleeding. PHYSICAL EXAMINATION: GENERAL: No acute distress. CHEST: Nonlabored. No shortness of breath. CVS: Regular rate and rhythm. ABDOMEN: Soft. IMPRESSION: Dysphagia and screening. PLAN: Colonoscopy with Dr. Joel Collier. As dictated by Michaela Agrawal NP.
[2022-01-08] MEDS ORDERED: Lactated Ringers 1,000 ML IV SCH (10:30)
[2022-01-08] MEDS ORDERED: Lactated Ringers 1,000 ML IV ONE (11:05)
[2022-01-08] MEDS ORDERED: Versed 2 MG/2 ML Injection ONE (11:26)
[2022-01-08] MEDS ORDERED: DIPRIVAN 200 MG/20 ML IV ONE ×3 (11:26→11:47)
[2022-01-08 15:07] VITALS: O2SAT 99
[2022-01-08 15:08] VITALS: BP 160/88; PULSE 61
--- NOTE | 2022-01-09 07:42 | OP ---
SURGERY DATE/TIME: 01/08/2022 1130 PREOPERATIVE DIAGNOSIS: Dysphagia. POSTOPERATIVE DIAGNOSES: 1) Grade 2 gastroesophageal reflux disease. 2) Mild duodenitis. 3) Ten year follow up colonoscopy. 4) Two rectal polyps. 5) Prep score excellent. 6) Withdrawal time 6 minutes. PROCEDURES: 1) EGD. 2) Colonoscopy complete to cecum with hot polypectomy x2. Anticipated follow up exam in five years. SURGEON: Joel Collier M.D. ANESTHESIA: MAC. COMPLICATIONS: None. CONDITION: Stable. INDICATION: Screening. The patient presents for above indications. DESCRIPTION OF PROCEDURE: Taken to endoscopy. Pharyngoesophageal junction normal. Esophagus normal down to gastroesophageal junction. Grade 2 over 4 esophagitis. No hiatal hernia. Fundus, body, antrum normal. Pylorus normal. Duodenal bulb slight duodenitis. Second portion normal. The scope withdrawn looped upon itself. No hiatal hernia. Anal digital examination satisfactory. Prostate satisfactory. Scope advanced to the cecum. Base of the cecum, ileocecal valve, appendiceal orifice normal. Ascending, hepatic, transverse, splenic, descending, sigmoid and anus satisfactory. There were two polyps in the upper rectum taken with biopsy forceps to extinction. The patient tolerated the procedure satisfactorily.
== END 2022-01-08 13:23 | disposition home or self-care (01) ==
LOC: SDC 09:55
PROVIDERS: ATTEND Surgery
DX: Z12.11 Encounter for screening for malignant neoplasm of colon (principal); R13.10 Dysphagia, unspecified; K21.9 Gastro-esophageal reflux disease without esophagitis; K29.80 Duodenitis without bleeding; K62.1 Rectal polyp
CPT/HCPCS: 88305; J2250; J2704

== ENCOUNTER 2022-12-10 10:45 | Day surgery (SDC) | payer MEDICARE, OTHER ==
--- NOTE | 2022-12-08 13:33 | HP ---
DATE OF SURGERY: 12/10/2022 HISTORY OF PRESENT ILLNESS: The patient is a 67-year-old male referred to us by Dr. Saldivar for a facial lesion. He has a right cheek lesion that has crusted, rough and atypical about 6 mm. He does appear to have two smaller lesions that are side by side. PAST MEDICAL HISTORY: Gout, gastroesophageal reflux disease, hypertension and benign prostatic hypertrophy. PAST SURGICAL HISTORY: Colonoscopy. ALLERGIES: TETRACYCLINE. LISINOPRIL. MEDICATIONS: Allopurinol, Benzonatate, clonidine, dexamethasone, finasteride, fluticasone, Lasix, loratadine, pantoprazole. FAMILY HISTORY: None. SOCIAL HISTORY: Occasional alcohol. REVIEW OF SYSTEMS: CONSTITUTIONAL: Denies fever or chills. CHEST: Denies shortness of breath. CVS: Denies chest pain. ABDOMEN: Denies abdominal pain. PHYSICAL EXAMINATION: GENERAL: No acute distress. CHEST: Nonlabored. No shortness of breath. CVS: Regular rate and rhythm. ABDOMEN: Soft. IMPRESSION: Right cheek lesion, two smaller lesions side by side. PLAN: Excision of right cheek lesion with Dr. Joel Collier. As dictated by Michaela Agrawal NP.
[2022-12-10] MEDS ORDERED: BACIGUENT 30 GM TOP ONE (10:46)
[2022-12-10] MEDS ORDERED: Lactated Ringers 1,000 ML IV SCH (12:00)
[2022-12-10] MEDS ORDERED: Sensorcaine 0.25% 10 ML ONE (12:46)
[2022-12-10] MEDS ORDERED: Quelicin Fliptop 200 MG/10 ML ONE (12:58)
[2022-12-10] MEDS ORDERED: DEXMEDETOMIDINE 80 MCG/20ML-NS IV ONE (12:58)
[2022-12-10] MEDS ORDERED: Xylocaine-Mpf 2% 5 Ml Vial ONE (12:58)
[2022-12-10] MEDS ORDERED: Zofran 4 MG/2 ML VIAL ONE (12:58)
[2022-12-10] MEDS ORDERED: SUBLIMAZE 100 MCG/2 ML ONE (12:59)
[2022-12-10] MEDS ORDERED: DIPRIVAN 200 MG/20 ML IV ONE (12:59)
[2022-12-10] MEDS ORDERED: KEFZOL 1 GM ONE (13:04)
[2022-12-10] MEDS ORDERED: Zemuron 100 MG/10 ML ONE (13:34)
[2022-12-10] MEDS ORDERED: Lactated Ringers 1,000 ML IV ONE (14:01)
[2022-12-10] MEDS ORDERED: BRIDION 200MG/2ML IV ONE (14:03)
--- NOTE | 2022-12-10 14:54 | OP ---
SURGERY DATE/TIME: 12/10/2022 1309 PREOPERATIVE DIAGNOSIS: Right cheek lesion. POSTOPERATIVE DIAGNOSIS: Right cheek lesion. PROCEDURE: Excision right cheek lesion. SURGEON: Joel Collier M.D. ANESTHESIA: General. COMPLICATIONS: None. CONDITION: Stable. DESCRIPTION OF PROCEDURE: The patient has a squamous cell positive margin underneath field of severe actinic keratosis and borderline early cancer measuring 2.75 vertically and 2.25 cm transversely. It is excised and options were either skin graft or rotational flap. He had some very nice loose preauricular skin that was felt prudent to loosen this and make rotational flap. Rotational flap had been marked and it was developed and was then sewn in place. A suture at 12:00 was placed matching 12:00 on the piece of material removed. He has changes throughout. There is no way to get totally clean margins but I believe we have malignant free margins here. It was tailored into place with 4-0, 5-0 and 6-0 Prolene. Cosmetically it looked nice. It was not pulling on the eye and filled the void quite nicely without any tension. Findings discussed with his in the waiting room.
[2022-12-10 15:31] VITALS: BP 168/90; PULSE 67; O2SAT 96
== END 2022-12-10 15:25 | disposition home or self-care (01) ==
LOC: SDC 10:45
PROVIDERS: ATTEND Surgery
DX: L57.0 Actinic keratosis (principal); C44.329 Squamous cell carcinoma of skin of other parts of face
CPT/HCPCS: J0330; J0690; J2405; J2704; J3010; A9270-GY

== ENCOUNTER 2023-02-02 17:40 | Emergency (ER) | payer MEDICARE, OTHER ==
[2023-02-02] MEDS ORDERED: TORAdol 30 mg Injection ONE (17:54)
[2023-02-02] MEDS ORDERED: Zofran 4 MG/2 ML VIAL ONE (17:54)
[2023-02-02] MEDS ORDERED: Sodium Chloride 0.9% 1000 ML 1,000 ML ONE (17:54)
[2023-02-02] MEDS: Zofran 4 MG/2 ML VIAL IV ONE (17:58)
[2023-02-02] MEDS: TORAdol 30 mg Injection IV ONE (17:58)
[2023-02-02] MEDS: Sodium Chloride 0.9% 1000 ML 1,000 ML IV STA (17:59)
[2023-02-02 18:08] VITALS: TEMP 97.6
[2023-02-02 18:15] LABS: Absolute Neutrophil Ct (ANC) 3.01 x10^3/uL (1.4-6.9); BASOPHIL % 0.5 % (0.0-0.4); Basophil (Absolute #) 0.03 x10^3/uL (0-0.4); Eosinophil % 1.6 % (0.00-5.0); Eosinophil (Absolute #) 0.09 x10^3/uL (0-0.5); Hematocrit 47.6 % (42-50); Hemoglobin 15.9 g/dL (12.5-18.0); IMMATURE GRAN # 0.01 x10^3u/L (0.00-0.03); IMMATURE GRAN % 0.2 % (0.00-0.4); Lymphocyte (Absolute #) 1.99 x10^3/uL (1.0-4.6); Lymphocytes % 35.6 % (24.0-44.0); Mean Cell Volume 93.5 fL (78-100); Mean Corpuscular Hemoglobin 31.2 pg (26-32); Mean Corpuscular Hgb Concent. 33.4 g/dL (32-36); Mean Platelet Volume 9.8 fL (7.5-11.0); Monocyte (Absolute #) 0.46 x10^3/uL (0.0-1.3); Monocytes % 8.2 % (0.0-12.0); Neutrophil % 53.9 % (36.0-66.0); Platelet Count 210 x10^3/uL (150-450); Red Blood Count 5.09 x10^6/uL (4.1-5.6); Red Cell Distribution Width 12.3 % (11.5-14.0); White Blood Count 5.6 x10^3/uL (4.0-10.5)
[2023-02-02 18:20] LABS: Appearance Clear (Clear); Bacteria None Seen /HPF (None Seen); Bilirubin Negative (Negative); Blood Large (Negative); Epithelial Cells None Seen /HPF (None Seen); Glucose, Urine Negative (Negative); Hyaline Casts NONE SEEN /LPF (0-2); Ketones Trace (Negative); Leukocyte Esterase Trace (Negative); Nitrite Negative (Negative); Protein,Urine Dip Negative (Negative); RBC >100 /HPF (0-5)
[2023-02-02 18:28] LABS: ADD URINE CULTURE? NO (NO)
[2023-02-02 18:30] LABS: ALBUMIN 4.2 g/dL (3.5-5.0); ANION GAP 14.5 MEQ/L (5-15); BILIRUBIN,TOTAL 0.6 mg/dL (0.2-1.3); Calcium 8.7 mg/dL (8.4-10.2); Creatinine 1 1.37 mg/dL (0.66-1.25); EST GLOMERULAR FILTRATION RATE 54.8 ML/MIN; Potassium 3.8 mmol/L (3.5-5.1); Total Protein 7.2 g/dL (6.3-8.2)
--- NOTE | 2023-02-02 18:51 | ERPHSYRPT ---
- History of Present Illness Time Seen by Provider: 02/02/23 18:45 Historian: patient Exam Limitations: no limitations Patient Subjective Stated Complaint: Right lower abdominal pain Triage Nursing Assessment: Patient ambulated back to ED and transferred self to bed. Patient A+O X3. Patient's skin flushed and diaphoretic. Patient states he thinks he has a kidney stone. Patient complains of constant sharp pain 10/10 to right lower abdomen. Patient's abdomen soft and round with BS X 4. Patient denies N/V or diarrhea. Physician History: Patient is a 67-year-old male presents to our ED for evaluation of right lower flank pain. Pain started just prior to arrival. Pain described as a sharp stabbing pain. Patient has a history of kidney stones and believes he has the same. No trauma no fever. Patient is slightly diaphoretic. Patient denies chest pain. Patient voices no other complaints or concerns at this time. Portions of this note were created with voice recognition technology. There may be grammatical, spelling, punctuation or sound alike errors Timing/Duration: today Activities at Onset: none Quality: sharpness Abdominal Pain Onset Location: RLQ Pain Radiation: no radiation Severity of Pain-Max: moderate Severity of Pain-Current: mild Modifying Factors: Improves With: nothing Associated Symptoms: nausea Previous symptoms: same symptoms as today Allergies/Adverse Reactions: Tetracyclines Allergy (Mild, Verified 02/02/23 17:46) Hives lisinopril Adverse Reaction (Severe, Verified 02/02/23 17:46) Swelling of Face Home Medications: Allopurinol 100 mg [Zyloprim 100 mg] 100 mg PO DAILY 12/30/21 [History] Clonidine HCl 0.1 mg [Clonidine 0.1 mg Tablet] 0.1 mg PO BID 12/30/21 [History] Finasteride 5 mg [Proscar 5 MG] 5 mg PO DAILY 12/30/21 [History] Furosemide 20 mg [Lasix 20 mg] 20 mg PO DAILY 12/30/21 [History] Sertraline HCl [Zoloft] 25 - 50 mg pe PO DAILY 12/30/21 [History] Ascorbic Acid [Vitamin C] 1,000 mg PO BID 01/08/22 [History] Cyanocobalamin/Folic Acid [Vitamin C78-Vbtiz Acid Tablet] 1 each PO DAILY 01/08/22 [History] Multivit-Min/FA/Lycopen/Lutein [Centrum Silver Tablet] 1 each PO DAILY 01/08/22 [History] Niacin (Inositol Niacinate) [Niacin 500 mg Capsule] 500 mg PO BID 01/08/22 [History] Orange-3 Fatty Acids [Orange-3] 1,000 mg PO BID 01/08/22 [History] Hx Tetanus, Diphtheria Vaccination/Date Given: No Hx Influenza Vaccination/Date Given: Yes Hx Pneumococcal Vaccination/Date Given: No Immunizations Up to Date: Yes Travel Risk - International Travel Have you traveled outside of the country in past 3 weeks: No - Coronavirus Screening Are you exhibiting any of the following symptoms?: No Close contact with a COVID-19 positive Pt in past 14-21 Days: No - Vaccine Status Have you recieved a Covid-19 vaccination: No - Review of Systems Constitutional: No Symptoms, No Fever, No Chills Eyes: No Symptoms Ears, Nose, & Throat: No Symptoms Respiratory: No Symptoms, No Cough, No Dyspnea Cardiac: No Symptoms, No Chest Pain, No Edema, No Syncope Abdominal/Gastrointestinal: No Symptoms, No Abdominal Pain, No Nausea, No Vomiting, No Diarrhea Genitourinary Symptoms: No Symptoms, No Dysuria Musculoskeletal: No Symptoms, No Back Pain, No Neck Pain Skin: No Symptoms, No Rash Neurological: No Symptoms, No Dizziness, No Focal Weakness, No Sensory Changes Psychological: No Symptoms Endocrine: No Symptoms Hematologic/Lymphatic: No Symptoms Immunological/Allergic: No Symptoms All Other Systems: Reviewed and Negative - Past Medical History Pertinent Past Medical History: Yes Neurological History: No Pertinent History ENT History: No Pertinent History Cardiac History: High Cholesterol, Hypertension Respiratory History: Bronchitis, Pneumonia Endocrine Medical History: No Pertinent History Musculoskeletal History: No Pertinent History GI Medical History: No Pertinent History History: No Pertinent History Psycho-Social History: Anxiety, Depression Male Reproductive Disorders: No Pertinent History Other Medical History: kidney stones - Past Surgical History Past Surgical History: Yes Neuro Surgical History: No Pertinent History Cardiac: No Pertinent History Respiratory: No Pertinent History Gastrointestinal: No Pertinent History Genitourinary: Other Musculoskeletal: No Pertinent History Male Surgical History: No Pertinent History Other Surgical History: kidney stone removed. skin leasion removed from face - Social History Smoking Status: Former smoker How long have you smoked: 40 Exposure to second hand smoke: No Drug Use: none Patient Lives Alone: No - Nursing Vital Signs Nursing Vital Signs: Initial Vital Signs Temperature 97.6 F 02/02/23 18:01 Pulse Rate 76 02/02/23 18:01 Respiratory Rate 19 02/02/23 18:01 Blood Pressure 176/121 02/02/23 18:01 O2 Sat by Pulse Oximetry 99 02/02/23 18:01 Pain Scale Pain Intensity 8 - Physical Exam General Appearance: no apparent distress, alert Eye Exam: PERRL/EOMI, eyes nml inspection Ears, Nose, Throat Exam: normal ENT inspection, pharynx normal, moist mucous membranes Neck Exam: normal inspection, non-tender, supple, full range of motion Respiratory Exam: normal breath sounds, lungs clear, No respiratory distress Cardiovascular Exam: regular rate/rhythm, normal heart sounds Gastrointestinal/Abdomen Exam: soft, No tenderness, No mass Back Exam: normal inspection, normal range of motion, No CVA tenderness, No vertebral tenderness Extremity Exam: normal inspection, normal range of motion, pelvis stable Neurologic Exam: alert, oriented x 3, cooperative, normal mood/affect, nml cerebellar function, sensation nml, No motor deficits Skin Exam: normal color, warm, dry SpO2 Interpretation: normal SpO2: 99 O2 Delivery: Room Air - Course Nursing assessment & vital signs reviewed: Yes - CT Exams Abdomen/Pelvis CT Interpretation: Tele-radiologist Report (No comps. Normal appendix. 5 to 6 mm distal right ureter stone. Stone was 2 cm proximal to UVJ. Subsequent minimal right hydroureter mild hydronephrosis and moderate renal edema. Additional bilateral renal stones) Ordered Tests: Active Orders 24 hr Category Date Time Status IV Insertion STAT Care 02/02/23 17:57 Active ABDOMEN AND PELVIS W/0 CONTRAS [CT] Stat Exams 02/02/23 17:57 Taken CBC W DIFF Stat Lab 02/02/23 18:00 Completed CMP/NO GLUCOSE Stat Lab 02/02/23 18:00 Completed UA W/RFX UR CULTURE Stat Lab 02/02/23 18:00 Completed Medication Summary Generic Name Dose Route Start Last Admin Trade Name Freq PRN Reason Stop Dose Admin Morphine Sulfate 4 mg 02/02/23 19:56 Morphine Sulfate 4 Mg/Ml Injection IV 02/02/23 19:57 STAT ONE Discontinued Medications Generic Name Dose Route Start Last Admin Trade Name Shaw PRN Reason Stop Dose Admin Sodium Chloride Confirm 02/02/23 17:54 Sodium Chloride 0.9% 1000 Ml Administered 02/02/23 17:55 Dose 1,000 mls @ ud .ROUTE .STK-MED ONE Sodium Chloride 1,000 mls @ 999 mls/hr 02/02/23 17:56 02/02/23 19:04 Sodium Chloride 0.9% 1000 Ml IV 02/02/23 18:56 Infused .Q1H1M STA Infusion Ketorolac Tromethamine Confirm 02/02/23 17:54 Ketorolac Tromethamine 30 Mg/Ml Inj Administered 02/02/23 17:55 Dose 30 mg .ROUTE .STK-MED ONE Ketorolac Tromethamine 30 mg 02/02/23 17:56 02/02/23 17:58 Ketorolac Tromethamine 30 Mg/Ml Inj IV 02/02/23 17:57 30 mg STAT ONE Administration Ondansetron HCl Confirm 02/02/23 17:54 Ondansetron Hcl 4 Mg/2 Ml Vial Administered 02/02/23 17:55 Dose 4 mg .ROUTE .STK-MED ONE Ondansetron HCl 4 mg 02/02/23 17:56 02/02/23 17:58 Ondansetron Hcl 4 Mg/2 Ml Vial IV 02/02/23 17:57 4 mg STAT ONE Administration Lab/Rad Data: Laboratory Result Diagrams 02/02/23 18:00 02/02/23 18:00 Laboratory Results 02/02/23 02/02/23 02/02/23 Range/Units 18:00 18:00 18:00 WBC 5.6 (4.0-10.5) x10^3/uL RBC 5.09 (4.1-5.6) x10^6/uL Hgb 15.9 (12.5-18.0) g/dL Hct 47.6 (42-50) % MCV 93.5 (78-100) fL MCH 31.2 (26-32) pg MCHC 33.4 (32-36) g/dL RDW 12.3 (11.5-14.0) % Plt Count 210 (150-450) x10^3/uL MPV 9.8 (7.5-11.0) fL Gran % 53.9 (36.0-66.0) % Immature Gran % (Auto) 0.2 (0.00-0.4) % Nucleat RBC Rel Count 0.0 (0.00-0.1) % Eos # (Auto) 0.09 (0-0.5) x10^3/uL Immature Gran # (Auto) 0.01 (0.00-0.03) x10^3u/L Absolute Lymphs (auto) 1.99 (1.0-4.6) x10^3/uL Absolute Monos (auto) 0.46 (0.0-1.3) x10^3/uL Absolute Nucleated RBC 0.00 (0.00-0.01) x10^3u/L Lymphocytes % 35.6 (24.0-44.0) % Monocytes % 8.2 (0.0-12.0) % Eosinophils % 1.6 (0.00-5.0) % Basophils % 0.5 (0.0-0.4) % Absolute Granulocytes 3.01 (1.4-6.9) x10^3/uL Basophils # 0.03 (0-0.4) x10^3/uL Sodium 138 (137-145) mmol/L Potassium 3.8 (3.5-5.1) mmol/L Chloride 102 (98-107) mmol/L Carbon Dioxide 25 (22-30) mmol/L Anion Gap 14.5 (5-15) MEQ/L BUN 11 (9-20) mg/dL Creatinine 1.37 H (0.66-1.25) mg/dL Estimated GFR 54.8 ML/MIN Calcium 8.7 (8.4-10.2) mg/dL Total Bilirubin 0.60 (0.2-1.3) mg/dL AST 35 (17-59) U/L ALT 39 (0-50) U/L Alkaline Phosphatase 90 (38-126) U/L Serum Total Protein 7.2 (6.3-8.2) g/dL Albumin 4.2 (3.5-5.0) g/dL Urine Color Yellow (Yellow) Urine Appearance Clear (Clear) Urine pH 6.0 (4.6-8.0) Ur Specific [place] 1.020 (1.005-1.030) Urine Protein Negative (Negative) Urine Glucose (UA) Negative (Negative) mg/dL Urine Ketones Trace A (Negative) Urine Blood Large A (Negative) Urine Nitrite Negative (Negative) Urine Bilirubin Negative (Negative) Urine Urobilinogen 1.0 A (0.2) mg/dL Ur Leukocyte Esterase Trace A (Negative) U Hyaline Cast (Auto) NONE SEEN (0-2) /LPF Urine Microscopic RBC >100 A (0-5) /HPF Urine Microscopic WBC 3-5 (0-5) /HPF Ur Epithelial Cells None Seen (None Seen) /HPF Urine Bacteria None Seen (None Seen) /HPF Urine Culture Reflexed NO (NO) - Progress Progress: improved Progress Note: Patient is a 67-year-old male presents to our ED with acute onset right flank pain. Physical exam reveals some tenderness to the right flank. Otherwise negative. Patient in significant pain. Patient states he has had kidney stones in the past and symptoms are currently similar. Testing included CT abdomen pelvis which reveals a 5 to 6 mm distal right ureteral stone. Stone is approximately 2 cm proximal to the UVJ. Hydroureter hydronephrosis moderate renal edema. Bilateral renal stones. CBC nonremarkable. CMP reveals a creatinine of 1.37. Urinalysis reveals hematuria. No urinary tract infection. Patient received normal saline. Patient received Toradol for pain control Zofran for nausea. A dose of morphine was given to patient prior to discharge. We offered patient transfer to a facility with a urologist but patient declined. Patient prefers to go home. at bedside. They voiced no other complaints or concerns at this time. Complexity of problems addressed is moderate, acute complicated. Chronic illness with exacerbation as patient has had obstructive kidney stones in the past. Complaints of data reviewed and analyzed is moderate. Test ordered. Test reviewed and analyzed. Clinical correlation made between findings and history and physical exam. Diagnosis confirmed on CT scan. Risk of complication and or risk of morbidity/mortality of patient management is high. A prescription for Toradol forwarded to patient's pharmacy. We will give patient additional dose of [place]. Patient received IV controlled medication/morphine for pain control Patient has a urologist which she follows. He will follow-up with his urologist within 48 hours for evaluation. We given the contact number to our urologist in the event that he cannot see his urologist in a timely fashion. Vital stable. Time to discharge patient approximately 15 minutes. Plan of care established for shared decision making. No social determinants of health present to impede follow-up. Portions of this note were created with voice recognition technology. There may be grammatical, spelling, punctuation or sound alike errors 02/02/23 19:57 02/02/23 20:06 Counseled pt/family regarding: lab results, diagnosis, need for follow-up, rad results - Departure Departure Disposition: Home Clinical Impression: Hydroureter, Ureterolithiasis, Nephrolithiasis, Hydronephrosis, Renal edema, Hematuria, Acute renal injury Condition: Stable Critical Care Time: No Referrals: LUIS DANIEL [Primary Care Provider] - Follow up/PCP as directed NAM GORDON [COURTESY STAFF] - Follow up/PCP as directed Instructions: Kidney Stones (DC) Additional Instructions: Discharge/Care Plan JULIEN BULL was seen on 02/02/23 in the Emergency Room. The patient was counseled regarding Diagnosis,Lab results, Imaging studies, need for follow up and when to return to the Emergency Room. Prescriptions given: Discharge Note I have spoken with the patient and/or caregivers. I have explained the patient's condition, diagnosis and treatment plan based on the information available to me at this time. I have answered the patient's and/or caregiver's questions and addressed any concerns. The patient and/or caregivers have as good understanding of the patient's diagnosis, condition and treatment plan as can be expected at this point. The vital signs have been stable. The patient's condition is stable and appropriate for discharge from the emergency department. The patient will pursue further outpatient evaluation with the primary care physician or other designated or consulting physician as outlined in the discharge instructions. The patient and/or caregivers are agreeable to this plan of care and follow-up instructions have been explained in detail. The patient a nd/or caregivers have received these instruction. The patient/and or caregivers are aware that any significant change in condition or worsening of symptoms should prompt an immediate return to this or the closest emergency department or call 911. Prescriptions: Hydrocodone/Acetaminophen [Hydrocodone-Acetamin 5-325 mg] 1 tab PO Q6HPRN PRN 3 Days #10 tablet MDD 4 PRN Reason: Pain Tamsulosin HCl 0.4 mg [Flomax 0.4 MG] 0.4 mg PO DAILY 14 Days #14 cap Ketorolac Trometh 10 mg Tab [TORAdol 10 MG TABLET] 10 mg PO TID 5 Days #15 tablet
[2023-02-02 19:49] VITALS: RESP 18; O2SAT 99
[2023-02-02] MEDS: MORPHINE SULFATE 4 MG INJ IV ONE (19:58)
[2023-02-02] MEDS ORDERED: MORPHINE SULFATE 4 MG INJ ONE (19:58)
[2023-02-02 20:07] VITALS: BP 190/87; PULSE 61
--- NOTE | 2023-02-03 09:02 | XRAY ---
Indication: Right lower quadrant pain. Multiple contiguous axial images obtained through the abdomen and pelvis without contrast. Comparison: None Lung bases demonstrates a few tiny right base calcified/noncalcified granulomas. No infiltrate or effusion. Heart not enlarged. Stomach is distended with food/fluid. Noncontrasted stomach and bowel loops appear nonobstructed with normal appendix. 5-6 mm distal right ureteral calculus approximately 2 cm proximal to the UVJ. Proximal right ureter is slightly prominent along with mild hydronephrosis and moderate renal edema consistent with partial obstructive uropathy. Additional multiple bilateral renal micro-calculi. No free fluid/air. Remaining liver, gallbladder, pancreas, spleen, adrenal glands, kidneys, ureters, and bladder are unremarkable for noncontrast exam. Minimal aortic calcifications without AAA. Osseous structures intact with minimal/mild degenerative changes throughout the spine and both hips. Impression: 1. 5-6 mm distal right ureteral calculus producing obstructive uropathy as detailed. Additional bilateral renal micro-calculi. 2. Incidental chronic bony findings and old granulomatous disease.
== END 2023-02-02 20:19 | disposition home or self-care (01) ==
LOC: ED 17:40
DX: N13.4 Hydroureter (principal); N13.2 Hydronephrosis with renal and ureteral calculous obstruction; Z87.442 Personal history of urinary calculi; N04.9 Nephrotic syndrome with unspecified morphologic changes; N17.9 Acute kidney failure, unspecified; R31.9 Hematuria, unspecified; R10.9 Unspecified abdominal pain; E78.5 Hyperlipidemia, unspecified; I10 Essential (primary) hypertension; Z79.891 Long term (current) use of opiate analgesic; Z79.899 Other long term (current) drug therapy; Z28.310 Unvaccinated for COVID-19
CPT/HCPCS: 36000; 36415; 74176; 80053; 81001; 85025; 96360; 96374; 96375; 99284; J1885; J2270; J2405

== ENCOUNTER → 2023-02-02 | Emergency (ER) | payer MEDICARE, OTHER | END | disposition left against medical advice (07) | LOC: ED 17:09 | DX: Z53.21 Procedure and treatment not carried out due to patient leaving prior to being seen by health care provider (principal) ==

== ENCOUNTER 2023-06-22 08:53 | Day surgery (SDC) | payer MEDICARE, OTHER ==
[2023-06-22] MEDS ORDERED: Epinephrine Preservative Free 1 MG/ML IJ ONE (08:54)
[2023-06-22] MEDS ORDERED: Ak-Dilate OPHTHALMIC*** 1.065 ML, Cyclogyl 1% OPHTH SOL 1.065 ML, GATIFLOXACIN 0.5% OPH... OP ONE ×4 (09:00)
[2023-06-22] MEDS ORDERED: Lactated Ringers 1,000 ML IV SCH (09:00)
[2023-06-22] MEDS ORDERED: BETADINE 5% OPHTHALMIC 30 ML OP ONE (09:00)
[2023-06-22] MEDS ORDERED: NON-FORMULARY ITEM OP ONE (09:00)
[2023-06-22] MEDS ORDERED: TETRACAINE 0.5% STERI-UNIT SOL OP ONE ×2 (09:00)
[2023-06-22] MEDS ORDERED: cefUROXime sodium 0.005 GM in Sodium Chloride Flush 30 ML*** 0.5 ML IJ ONE (09:00)
[2023-06-22] MEDS ORDERED: Lactated Ringers 1,000 ML IV ONE (09:13)
[2023-06-22 10:18] VITALS: RESP 18
[2023-06-22] MEDS ORDERED: DIPRIVAN 200 MG/20 ML IV ONE (10:39)
[2023-06-22] MEDS ORDERED: Versed 2 MG/2 ML Injection ONE (10:40)
[2023-06-22] MEDS ORDERED: SUBLIMAZE 100 MCG/2 ML ONE (10:40)
[2023-06-22] MEDS ORDERED: ACETAZOLAMIDE 250 MG TABLET PO ONE (11:00)
[2023-06-22] MEDS ORDERED: Zofran 4 MG/2 ML VIAL IV PRN (11:00)
[2023-06-22 11:07] VITALS: TEMP 98
[2023-06-22 11:18] VITALS: PULSE 59; O2SAT 96
[2023-06-22 11:21] VITALS: BP 157/95
== END 2023-06-22 11:30 | disposition home or self-care (01) ==
LOC: SDC 08:53
PROVIDERS: ATTEND Ophthalmology
DX: H25.812 Combined forms of age-related cataract, left eye (principal)
CPT/HCPCS: C1780; J0171; J2250; J2704; J3010; A9270-GY

== ENCOUNTER 2023-10-07 09:35 | Day surgery (SDC) | payer MEDICARE, OTHER ==
--- NOTE | 2023-10-06 08:07 | HP ---
DATE OF SURGERY: 10/07/2023 HISTORY OF PRESENT ILLNESS: The patient is a 68-year-old male presents with a small umbilical hernia for years. He has some omental incarceration. A little tender to reduce. It is about 1 cm. He has had a slightly bit more pain with it lately. PAST MEDICAL HISTORY: Gastroesophageal reflux disease. Depression. Gout. Benign prostatic hypertrophy, hypertension. PAST SURGICAL HISTORY: None. ALLERGIES: LISINOPRIL. TETRACYCLINE. MEDICATIONS: Loratadine, finasteride, fluticasone, allopurinol, Lasix, clonidine, pantoprazole, sertraline. FAMILY HISTORY: None. SOCIAL HISTORY: None reported. REVIEW OF SYSTEMS: CONSTITUTIONAL: Denies fever or chills. CHEST: Denies shortness of breath. CVS: Denies chest pain. ABDOMEN: Reports umbilical hernia pain. PHYSICAL EXAMINATION: GENERAL: No acute distress. CHEST: Nonlabored. No shortness of breath. CVS: Regular rate and rhythm. ABDOMEN: Soft with a small reducible umbilical hernia about 1 cm. IMPRESSION: Small umbilical hernia. PLAN: Open umbilical hernia repair with Dr. Joel Collier. As dictated by Michaela Agrawal NP.
[2023-10-07] MEDS ORDERED: EXPAREL 133 MG/10 ML VIAL IJ ONE (09:36)
[2023-10-07] MEDS: celeBREX 100 MG PO ONE (10:38)
[2023-10-07] MEDS: CEFAZOLIN 2 GM-D5W BAG** 2 GM/50 ML ML IV SCH (10:38)
[2023-10-07] MEDS: Lactated Ringers 1,000 ML IV SCH (10:39)
[2023-10-07] MEDS: TYLENOL EXTRA STRENGTH 500 MG PO STA (10:39)
[2023-10-07 11:04] LABS: Hematocrit 47.3 % (42-50); Hemoglobin 15.9 g/dL (12.5-18.0); Mean Cell Volume 93.3 fL (78-100); Mean Corpuscular Hemoglobin 31.4 pg (26-32); Mean Corpuscular Hgb Concent. 33.6 g/dL (32-36); Mean Platelet Volume 9.5 fL (7.5-11.0); Platelet Count 203 x10^3/uL (150-450); Red Blood Count 5.07 x10^6/uL (4.1-5.6); Red Cell Distribution Width 12.5 % (11.5-14.0); White Blood Count 3.6 x10^3/uL (4.0-10.5)
[2023-10-07 11:16] LABS: Absolute Neutrophil Ct (ANC) 1.82 x10^3/uL (1.4-6.9); BASOPHIL % 1.1 % (0.0-0.4); Basophil (Absolute #) 0.04 x10^3/uL (0-0.4); Eosinophil % 3.4 % (0.00-5.0); Eosinophil (Absolute #) 0.12 x10^3/uL (0-0.5); IMMATURE GRAN # 0.01 x10^3u/L (0.00-0.03); IMMATURE GRAN % 0.3 % (0.00-0.4); Lymphocytes % 36.6 % (24.0-44.0); Monocyte (Absolute #) 0.26 x10^3/uL (0.0-1.3); Monocytes % 7.3 % (0.0-12.0); Neutrophil % 51.3 % (36.0-66.0)
[2023-10-07 11:17] LABS: ALBUMIN 3.9 g/dL (3.5-5.0); ANION GAP 10.8 MEQ/L (5-15); BILIRUBIN,TOTAL 0.7 mg/dL (0.2-1.3); Calcium 9.1 mg/dL (8.4-10.2); Creatinine 1 1.04 mg/dL (0.66-1.25); EST GLOMERULAR FILTRATION RATE 77.3 ML/MIN; Potassium 4.4 mmol/L (3.5-5.1); Total Protein 7.1 g/dL (6.3-8.2)
[2023-10-07] MEDS ORDERED: ROCURONIUM BROMIDE IV ONE (11:35)
[2023-10-07] MEDS ORDERED: Decadron 4 MG INJ ONE (11:35)
[2023-10-07] MEDS ORDERED: BRIDION 200MG/2ML IV ONE ×2 (11:35→13:09)
[2023-10-07] MEDS ORDERED: Xylocaine-Mpf 2% 5 Ml Vial ONE (11:35)
[2023-10-07] MEDS ORDERED: DIPRIVAN 200 MG/20 ML IV ONE (11:35)
[2023-10-07] MEDS ORDERED: Zofran 4 MG/2 ML VIAL ONE (11:35)
[2023-10-07] MEDS ORDERED: SUBLIMAZE 100 MCG/2 ML ONE (12:29)
[2023-10-07] MEDS ORDERED: Sensorcaine 0.25% 10 ML ONE (12:37)
[2023-10-07] MEDS ORDERED: Marcaine Mpf 0.5% Vial 30 Ml ONE (12:58)
[2023-10-07] MEDS ORDERED: ROBINUL ONE (13:12)
[2023-10-07] MEDS ORDERED: ATROPINE SULFATE 1MG ONE (13:15)
--- NOTE | 2023-10-07 14:07 | OP ---
SURGERY DATE/TIME: 10/07/2023 1231 PREOPERATIVE DIAGNOSIS: Symptomatic umbilical hernia. POSTOPERATIVE DIAGNOSIS: Symptomatic umbilical hernia. PROCEDURE: Umbilical herniorrhaphy primary open. SURGEON: Joel Collier M.D. ANESTHESIA: General. INDICATION FOR PROCEDURE: A patient with symptomatic hernia. Marked preoperatively. It is umbilical. DESCRIPTION OF PROCEDURE: Taken to surgery. A transverse umbilical incision. A 1 cm defect. A 4 cm hernia. The hernia was reduced. Defect approximated with running 0 Prolene. The knot was imbricated with 3-0 Vicryl. Skin closed with 4-0 Vicryl. Compression umbilical dressing applied. The patient tolerated the procedure satisfactorily.
[2023-10-07 14:51] VITALS: RESP 18
[2023-10-07 15:22] VITALS: BP 162/88; PULSE 79; TEMP 96.7; O2SAT 96
== END 2023-10-07 15:30 | disposition home or self-care (01) ==
LOC: SDC 09:35
PROVIDERS: ATTEND Surgery
DX: K42.9 Umbilical hernia without obstruction or gangrene (principal); Z79.899 Other long term (current) drug therapy
CPT/HCPCS: 36415; 64488; 76937; 80053; 85025; 93005; J0461; J0690; J1100; J2405; J2704; J3010; A9270-GY

== ENCOUNTER 2024-05-05 17:04 | Emergency (ER) | payer MEDICARE ==
--- NOTE | 2024-05-05 17:13 | ERPHSYRPT ---
<JAVIDEUSEBIAWARREN NGUYEN - Last Filed: 05/05/24 19:33> - History of Present Illness Time Seen by Provider: 05/05/24 17:13 Historian: patient, family Exam Limitations: no limitations Physician History: pt had Cp recently diagnosed as a muscle strain, but today had more severe and is tender left chest and abd and short of breath. Denies prior cardiac but takes ASA daily. CHest clear Ht reg without M EKG LAD LAFB NST wave. Discussed risks/benefits of testing/Tx with pt and family including CBC, CT CHest and Abd, CMP, Lactate, Lipase, Barbara Trop EKG, D DImer, IV with NTG and MS, and they wish to continue so these are ordered. Results discussed. Timing/Duration: today Activities at Onset: other (leaf blowing) Quality: sharpness, stabbing Location: substernal, central, epigastric, abdomen Chest Pain Radiation: arm Severity of Pain-Max: moderate Severity of Pain-Current: moderate Modifying Factors: Improves With: movement Associated Symptoms: shortness of breath, hurts to breathe Prior Chest Pain/Cardiac Workup: recently seen/treated Nitro Today/Relief: 0.4 mg x 1, provided by ED Aspirin Treatment Today: 81 mg x 1, provided at home Allergies/Adverse Reactions: Tetracyclines Allergy (Mild, Verified 05/05/24 17:06) Hives lisinopril Adverse Reaction (Severe, Verified 05/05/24 17:06) Swelling of Face Home Medications: Clonidine HCl 0.1 mg [Clonidine 0.1 mg Tablet] 0.1 mg PO BID 12/30/21 [History] Sertraline HCl [Zoloft] 25 mg pe PO DAILY 12/30/21 [History] Allopurinol 100 mg [Zyloprim 100 mg] 100 mg PO DAILY 06/22/23 [History] Finasteride 5 mg [Proscar 5 MG] 5 mg PO DAILY 06/22/23 [History] Furosemide 20 mg [Lasix 20 mg] 20 mg PO DAILY 06/22/23 [History] Ascorbic Acid 500 mg [Vitamin C 500 MG] 500 mg PO DAILY 10/07/23 [History] Aspirin EC 81 mg [Ecotrin 81 mg] 81 mg PO DAILY 10/07/23 [History] Cyanocobalamin (Vitamin B-12) [Vitamin B-12] 1,000 mcg PO DAILY 10/07/23 [History] Multivit-Min/FA/Lycopen/Lutein [Centrum Silver Tablet] 1 each PO DAILY 10/07/23 [History] Niacin (Inositol Niacinate) [Niacin 500 mg Capsule] 500 mg PO BID 10/07/23 [History] [place]isf[place]-3 Fatty Acids [Crisfield-3] 1,000 mg PO DAILY 10/07/23 [History] Hx Tetanus, Diphtheria Vaccination/Date Given: No Hx Influenza Vaccination/Date Given: Yes Hx Pneumococcal Vaccination/Date Given: No Travel Risk - Emerging Infectious Disease Are you exhibiting symptoms associated with any current EIDs: No - Review of Systems Constitutional: No Fever, No Chills Eyes: No Symptoms Ears, Nose, & Throat: No Symptoms Respiratory: Dyspnea, No Cough Cardiac: Chest Pain, No Edema, No Syncope Abdominal/Gastrointestinal: Abdominal Pain, No Nausea, No Vomiting, No Diarrhea Genitourinary Symptoms: No Dysuria Musculoskeletal: No Back Pain, No Neck Pain Skin: No Rash Neurological: No Dizziness, No Focal Weakness, No Sensory Changes Psychological: No Symptoms Endocrine: No Symptoms Hematologic/Lymphatic: No Symptoms Immunological/Allergic: No Symptoms All Other Systems: Reviewed and Negative - Past Medical History Pertinent Past Medical History: Yes Neurological History: No Pertinent History ENT History: No Pertinent History Cardiac History: High Cholesterol, Hypertension Respiratory History: Bronchitis, Pneumonia Endocrine Medical History: No Pertinent History Musculoskeletal History: No Pertinent History GI Medical History: No Pertinent History History: No Pertinent History Psycho-Social History: Anxiety, Depression Male Reproductive Disorders: No Pertinent History Other Medical History: kidney stones - Past Surgical History Past Surgical History: Yes Neuro Surgical History: No Pertinent History Cardiac: No Pertinent History Respiratory: No Pertinent History Gastrointestinal: No Pertinent History Genitourinary: Other Musculoskeletal: No Pertinent History Male Surgical History: No Pertinent History Other Surgical History: kidney stone removed. skin lesion removed from face - Social History Smoking Status: Former smoker How long have you smoked: 40 Exposure to second hand smoke: No Drug Use: none Patient Lives Alone: No - Physical Exam General Appearance: no apparent distress, alert Eye Exam: PERRL/EOMI, eyes nml inspection Ears, Nose, Throat Exam: normal ENT inspection, moist mucous membranes Neck Exam: normal inspection, non-tender, supple, full range of motion Respiratory Exam: normal breath sounds, lungs clear, No respiratory distress Cardiovascular Exam: regular rate/rhythm, normal heart sounds, normal peripheral pulses, other (tender chest ) Gastrointestinal/Abdomen Exam: soft, tenderness, guarding, No mass, No rebound Back Exam: normal inspection, No CVA tenderness, No vertebral tenderness Extremity Exam: normal inspection, normal range of motion Neurologic Exam: alert, oriented x 3, cooperative, normal mood/affect, sensation nml, No motor deficits Skin Exam: normal color, warm, dry SpO2 Interpretation: normal SpO2: 97 O2 Delivery: Room Air - Course Nursing assessment & vital signs reviewed: Yes EKG Interpreted by Me: Sinus Rhythm, Left [place] Deviation, LAFB, Non-specific ST Changes, Other (LAE conduction) - Progress Progress: improved, re-examined Air Movement: good Progress Note: 05/05/24 19:31 pt turned over the Dr[address] Montgomery at change of shift for final dispo and pending test s/imaging after discussion and introduction. Blood Culture(s) Obtained: No Antibiotics given: No Counseled pt/family regarding: lab results, diagnosis, need for follow-up, rad results Medical Desision Making - Independent Historian Additional History obtained from: Family - Discussion of managment Reviewed:: Test results, Need for additional workup Agreed on:: Treatment plan, need for follow-up - Diagnostic Testing Diagnostic test were ordered, analyzed, and reviewed by me: Yes Radiological Interpretation: Interpreted by me, Reviewed by me, Teleradiologist Report - Risk of complications The pt has a mod risk of morbidity or mortality based on: Need for prescription drug management The pt has a high risk of morbidity or mortality based on: Decision regarding hospitilization or escalation of hosp level of care - Departure Clinical Impression: Chest pain, Intercostal muscle strain, UTI (urinary tract infection) Condition: Good Critical Care Time: No Referrals: LUIS DANIEL [Primary Care Provider] - Follow up/PCP as directed Instructions: Costochondritis Prescriptions: Cyclobenzaprine HCl 10 mg PO TID PRN 5 Days #15 tablet PRN Reason: Muscle Spasms <DANIEL MONTGOMERY - Last Filed: 05/05/24 21:56> - Nursing Vital Signs Nursing Vital Signs: Initial Vital Signs Pulse Rate 65 05/05/24 17:11 Respiratory Rate 17 05/05/24 17:11 Blood Pressure 180/100 05/05/24 17:11 O2 Sat by Pulse Oximetry 97 05/05/24 17:11 Pain Scale Pain Intensity 6 - CT Exams Chest CT Interpretation: Negative, Tele-radiologist Report Abdomen/Pelvis CT Interpretation: Negative, Tele-radiologist Report Ordered Tests: Active Orders 24 hr Category Date Time Status ABDOMEN AND PELVIS W/0 CONTRAS [CT] Stat Exams 05/05/24 17:30 Taken CHEST WITHOUT CONTRAST [CT] Stat Exams 05/05/24 17:30 Taken AMYLASE Stat Lab 05/05/24 17:08 Completed CBC W DIFF Stat Lab 05/05/24 17:08 Completed CMP Stat Lab 05/05/24 17:08 Completed CULTURE,URINE Stat Lab 05/05/24 21:25 Received D-DIMER QUANTITATIVE Stat Lab 05/05/24 17:08 Completed LIPASE Stat Lab 05/05/24 17:08 Completed Lactic Acid Stat Lab 05/05/24 17:50 Completed NT PRO BNPII Stat Lab 05/05/24 17:08 Completed TROPONIN Q4H Lab 05/05/24 17:08 Completed TROPONIN Q4H Lab 05/05/24 20:55 Completed TROPONIN Q4H Lab 05/06/24 01:30 Ordered UA W/RFX UR CULTURE Stat Lab 05/05/24 21:25 Completed Medication Summary Generic Name Dose Route Start Last Admin Trade Name Freq PRN Reason Stop Dose Admin Cyclobenzaprine HCl 10 mg 05/05/24 21:50 Cyclobenzaprine Hcl 10 Mg Tablet PO 05/05/24 21:51 STAT ONE Nitrofurantoin Macrocrystals 100 mg 05/05/24 21:51 Nitrofurantoin Macro 100 Mg Capsule PO 05/05/24 21:52 STAT ONE Discontinued Medications Generic Name Dose Route Start Last Admin Trade Name Freq PRN Reason Stop Dose Admin Hydromorphone HCl 1 mg 05/05/24 18:26 05/05/24 18:32 Hydromorphone 1 Mg/1ml Inj IV 05/05/24 18:27 1 mg STAT ONE Administration Hydromorphone HCl Confirm 05/05/24 18:31 Hydromorphone 1 Mg/1ml Inj Administered 05/05/24 18:32 Dose 1 mg .ROUTE .STK-MED ONE Morphine Sulfate 4 mg 05/05/24 17:31 05/05/24 17:36 Morphine Sulfate 4 Mg/Ml Injection IV 05/05/24 17:32 4 mg STAT ONE Administration Morphine Sulfate Confirm 05/05/24 17:36 Morphine Sulfate 4 Mg/Ml Injection Administered 05/05/24 17:37 Dose 4 mg .ROUTE .STK-MED ONE Lab/Rad Data: Laboratory Result Diagrams 05/05/24 17:08 05/05/24 17:08 Laboratory Results 05/05/24 05/05/24 05/05/24 Range/Units 21:25 20:55 17:50 WBC (4.23-9.07) x10^3/uL RBC (4.63-6.08) x10^6/uL Hgb (13.7-17.5) g/dL Hct (40.1-51.0) % MCV (79.0-92.2) fL MCH (25.7-32.2) pg MCHC (32.3-36.5) g/dL RDW (11.6-14.4) % Plt Count (163-337) x10^3/uL MPV (9.4-12.4) fL Gran % (34.0-67.9) % Immature Gran % (Auto) (0.001-0.429) % Nucleat RBC Rel Count (0.00-0.2) % Eos # (Auto) (0.04-0.54) x10^3/uL Immature Gran # (Auto) (0.001-0.031) x10^3u/L Absolute Lymphs (auto) (1.32-3.57) x10^3/uL Absolute Monos (auto) (0.30-0.82) x10^3/uL Absolute Nucleated RBC (0.00-0.012) x10^3u/L Lymphocytes % (21.8-53.1) % Monocytes % (5.3-12.2) % Eosinophils % (0.8-7.0) % Basophils % (0.2-1.2) % Absolute Granulocytes (1.78-5.38) x10^3/uL Basophils # (0.01-0.08) x10^3/uL D-Dimer (0.0-0.50) mg/L Sodium (135-145) mmol/L Potassium (3.5-5.1) mmol/L Chloride (98-107) mmol/L Carbon Dioxide (22-30) mmol/L Anion Gap (5-15) MEQ/L BUN (9-20) mg/dL Creatinine (0.66-1.25) mg/dL Estimated GFR ML/MIN Glucose (74-106) mg/dL Lactic Acid 1.6 (0.4-2.0) Calcium (8.4-10.2) mg/dL Total Bilirubin (0.2-1.3) mg/dL AST (17-59) U/L ALT (0-50) U/L Alkaline Phosphatase (38-126) U/L Troponin I < 0.012 (0.000-0.033) ng/mL NT-Pro-B Natriuret Pep (<300) pg/mL Serum Total Protein (6.3-8.2) g/dL Albumin (3.5-5.0) g/dL Amylase (30-110) U/L Lipase (23-300) U/L Urine Color Yellow (Yellow) Urine Appearance Clear (Clear) Urine pH 6.0 (4.6-8.0) Ur Specific [place] 1.020 (1.005-1.030) Urine Protein Trace A (Negative) Urine Glucose (UA) Negative (Negative) mg/dL Urine Ketones Negative (Negative) Urine Blood Trace (Negative) Urine Nitrite Negative (Negative) Urine Bilirubin Negative (Negative) Urine Urobilinogen 0.2 (0.2) mg/dL Ur Leukocyte Esterase Small A (Negative) U Hyaline Cast (Auto) 11-20 (0-2) /LPF Urine Microscopic RBC 6-10 A (0-5) /HPF Urine Microscopic WBC 21-50 A (0-5) /HPF Ur Epithelial Cells Few (None Seen) /HPF Urine Bacteria None Seen (None Seen) /HPF Urine Culture Reflexed YES (NO) 05/05/24 05/05/24 05/05/24 Range/Units 17:08 17:08 17:08 WBC (4.23-9.07) x10^3/uL RBC (4.63-6.08) x10^6/uL Hgb (13.7-17.5) g/dL Hct (40.1-51.0) % MCV (79.0-92.2) fL MCH (25.7-32.2) pg MCHC (32.3-36.5) g/dL RDW (11.6-14.4) % Plt Count (163-337) x10^3/uL MPV (9.4-12.4) fL Gran % (34.0-67.9) % Immature Gran % (Auto) (0.001-0.429) % Nucleat RBC Rel Count (0.00-0.2) % Eos # (Auto) (0.04-0.54) x10^3/uL Immature Gran # (Auto) (0.001-0.031) x10^3u/L Absolute Lymphs (auto) (1.32-3.57) x10^3/uL Absolute Monos (auto) (0.30-0.82) x10^3/uL Absolute Nucleated RBC (0.00-0.012) x10^3u/L Lymphocytes % (21.8-53.1) % Monocytes % (5.3-12.2) % Eosinophils % (0.8-7.0) % Basophils % (0.2-1.2) % Absolute Granulocytes (1.78-5.38) x10^3/uL Basophils # (0.01-0.08) x10^3/uL D-Dimer 0.39 (0.0-0.50) mg/L Sodium 141 (135-145) mmol/L Potassium 4.2 (3.5-5.1) mmol/L Chloride 108 H (98-107) mmol/L Carbon Dioxide 27 (22-30) mmol/L Anion Gap 9.6 (5-15) MEQ/L BUN 18 (9-20) mg/dL Creatinine 1.08 (0.66-1.25) mg/dL Estimated GFR 73.8 ML/MIN Glucose 104 (74-106) mg/dL Lactic Acid (0.4-2.0) Calcium 9.2 (8.4-10.2) mg/dL Total Bilirubin 0.40 (0.2-1.3) mg/dL AST 43 (17-59) U/L ALT 49 (0-50) U/L Alkaline Phosphatase 95 (38-126) U/L Troponin I < 0.012 (0.000-0.033) ng/mL NT-Pro-B Natriuret Pep 109 (<300) pg/mL Serum Total Protein 7.2 (6.3-8.2) g/dL Albumin 4.1 (3.5-5.0) g/dL Amylase 89 (30-110) U/L Lipase 77 (23-300) U/L Urine Color (Yellow) Urine Appearance (Clear) Urine pH (4.6-8.0) Ur Specific [place] (1.005-1.030) Urine Protein (Negative) Urine Glucose (UA) (Negative) mg/dL Urine Ketones (Negative) Urine Blood (Negative) Urine Nitrite (Negative) Urine Bilirubin (Negative) Urine Urobilinogen (0.2) mg/dL Ur Leukocyte Esterase (Negative) U Hyaline Cast (Auto) (0-2) /LPF Urine Microscopic RBC (0-5) /HPF Urine Microscopic WBC (0-5) /HPF Ur Epithelial Cells (None Seen) /HPF Urine Bacteria (None Seen) /HPF Urine Culture Reflexed (NO) 05/05/24 Range/Units 17:08 WBC 5.9 (4.23-9.07) x10^3/uL RBC 4.94 (4.63-6.08) x10^6/uL Hgb 15.7 (13.7-17.5) g/dL Hct 46.5 (40.1-51.0) % MCV 94.1 H (79.0-92.2) fL MCH 31.8 (25.7-32.2) pg MCHC 33.8 (32.3-36.5) g/dL RDW 12.5 (11.6-14.4) % Plt Count 222 (163-337) x10^3/uL MPV 10.0 (9.4-12.4) fL Gran % 44.3 (34.0-67.9) % Immature Gran % (Auto) 0.2 (0.001-0.429) % Nucleat RBC Rel Count 0.0 (0.00-0.2) % Eos # (Auto) 0.20 (0.04-0.54) x10^3/uL Immature Gran # (Auto) 0.01 (0.001-0.031) x10^3u/L Absolute Lymphs (auto) 2.50 (1.32-3.57) x10^3/uL Absolute Monos (auto) 0.53 (0.30-0.82) x10^3/uL Absolute Nucleated RBC 0.00 (0.00-0.012) x10^3u/L Lymphocytes % 42.4 (21.8-53.1) % Monocytes % 9.0 (5.3-12.2) % Eosinophils % 3.4 (0.8-7.0) % Basophils % 0.7 (0.2-1.2) % Absolute Granulocytes 2.61 (1.78-5.38) x10^3/uL Basophils # 0.04 (0.01-0.08) x10^3/uL D-Dimer (0.0-0.50) mg/L Sodium (135-145) mmol/L Potassium (3.5-5.1) mmol/L Chloride (98-107) mmol/L Carbon Dioxide (22-30) mmol/L Anion Gap (5-15) MEQ/L BUN (9-20) mg/dL Creatinine (0.66-1.25) mg/dL Estimated GFR ML/MIN Glucose (74-106) mg/dL Lactic Acid (0.4-2.0) Calcium (8.4-10.2) mg/dL Total Bilirubin (0.2-1.3) mg/dL AST (17-59) U/L ALT (0-50) U/L Alkaline Phosphatase (38-126) U/L Troponin I (0.000-0.033) ng/mL NT-Pro-B Natriuret Pep (<300) pg/mL Serum Total Protein (6.3-8.2) g/dL Albumin (3.5-5.0) g/dL Amylase (30-110) U/L Lipase (23-300) U/L Urine Color (Yellow) Urine Appearance (Clear) Urine pH (4.6-8.0) Ur Specific [place] (1.005-1.030) Urine Protein (Negative) Urine Glucose (UA) (Negative) mg/dL Urine Ketones (Negative) Urine Blood (Negative) Urine Nitrite (Negative) Urine Bilirubin (Negative) Urine Urobilinogen (0.2) mg/dL Ur Leukocyte Esterase (Negative) U Hyaline Cast (Auto) (0-2) /LPF Urine Microscopic RBC (0-5) /HPF Urine Microscopic WBC (0-5) /HPF Ur Epithelial Cells (None Seen) /HPF Urine Bacteria (None Seen) /HPF Urine Culture Reflexed (NO) - Progress Progress Note: 05/05/24 21:52 Assumed care at 1900 pending labs and imaging. CT chest abdomen pelvis showed no acute findings. Initial troponin negative. Repeat troponin also negative. Patient continues to have left-sided chest pain worse with deep inspiration and reproducible with palpation over the left anterior chest most notably between costal muscles. Patient also found to have a UTI and reports that he has been having dysuria. I will start the patient on Macrobid for UTI. I will also give the patient Flexeril to help with muscle spasm and advised to continue the diclofenac he was already prescribed for the intercostal strain. Recommended chest binder to help with symptoms. I did strongly encourage 10 deep breaths per hour to help avoid atelectasis. - Departure Departure Disposition: Home
[2024-05-05 17:19] VITALS: TEMP 97.5
[2024-05-05] MEDS: MORPHINE SULFATE 4 MG INJ IV ONE (17:36)
[2024-05-05] MEDS ORDERED: MORPHINE SULFATE 4 MG INJ ONE (17:36)
[2024-05-05 17:39] LABS: Absolute Neutrophil Ct (ANC) 2.61 x10^3/uL (1.78-5.38); BASOPHIL % 0.7 % (0.2-1.2); Basophil (Absolute #) 0.04 x10^3/uL (0.01-0.08); Eosinophil % 3.4 % (0.8-7.0); Hematocrit 46.5 % (40.1-51.0); Hemoglobin 15.7 g/dL (13.7-17.5); IMMATURE GRAN # 0.01 x10^3u/L (0.001-0.031); IMMATURE GRAN % 0.2 % (0.001-0.429); Lymphocytes % 42.4 % (21.8-53.1); Mean Cell Volume 94.1 fL (79.0-92.2); Mean Corpuscular Hemoglobin 31.8 pg (25.7-32.2); Mean Corpuscular Hgb Concent. 33.8 g/dL (32.3-36.5); Monocyte (Absolute #) 0.53 x10^3/uL (0.30-0.82); Neutrophil % 44.3 % (34.0-67.9); Platelet Count 222 x10^3/uL (163-337); Red Blood Count 4.94 x10^6/uL (4.63-6.08); Red Cell Distribution Width 12.5 % (11.6-14.4); White Blood Count 5.9 x10^3/uL (4.23-9.07)
[2024-05-05 18:06] LABS: ALBUMIN 4.1 g/dL (3.5-5.0); ANION GAP 9.6 MEQ/L (5-15); BILIRUBIN,TOTAL 0.4 mg/dL (0.2-1.3); Calcium 9.2 mg/dL (8.4-10.2); Creatinine 1 1.08 mg/dL (0.66-1.25); EST GLOMERULAR FILTRATION RATE 73.8 ML/MIN; Potassium 4.2 mmol/L (3.5-5.1); Total Protein 7.2 g/dL (6.3-8.2)
[2024-05-05] MEDS ORDERED: Hydromorphone 1 mg/ml Injection ONE (18:31)
[2024-05-05] MEDS: Hydromorphone 1 mg/ml Injection IV ONE (18:32)
[2024-05-05 21:28] VITALS: O2SAT 96
[2024-05-05 21:38] LABS: Appearance Clear (Clear); Bacteria None Seen /HPF (None Seen); Bilirubin Negative (Negative); Blood Trace (Negative); Epithelial Cells Few /HPF (None Seen); Glucose, Urine Negative (Negative); Ketones Negative (Negative); Leukocyte Esterase Small (Negative); Nitrite Negative (Negative); Protein,Urine Dip Trace (Negative); Urobilinogen 0.2 mg/dL (0.2); WBC 21-50 /HPF (0-5)
[2024-05-05] MEDS ORDERED: Macrobid 100MG Capsule ONE (21:55)
[2024-05-05] MEDS ORDERED: Cyclobenzaprine 10 MG ONE (21:55)
[2024-05-05] MEDS: Macrobid 100MG Capsule PO ONE (21:58)
[2024-05-05] MEDS: Cyclobenzaprine 10 MG PO ONE (21:58)
[2024-05-05 22:07] VITALS: BP 171/104; PULSE 67; RESP 20
--- NOTE | 2024-05-05 22:12 | XRAY ---
Indication: Left chest pain. Multiple contiguous axial images obtained through the chest without contrast. Comparison: October 24, 2014 Lungs inflated and clear again with incidental tiny right lung calcified granulomas. Heart not enlarged. Aorta is normal course and caliber. Stable small right hilar calcified nodes. No pathologic mediastinal lymphadenopathy. Bony thorax intact again with osteopenia and mild degenerative changes throughout the spine. CT abdomen/pelvis reported separately. Impression: Chronic findings including osteopenia, degenerative spondylosis, and old granulomatous disease. Remaining CT chest without contrast exam is negative.
--- NOTE | 2024-05-05 22:16 | XRAY ---
Indication: Abdominal pain. Chest pain. Multiple contiguous axial images obtained through the abdomen and pelvis without contrast. Comparison: February 02, 2023 CT chest reported separately. Noncontrasted stomach and bowel loops appear nonobstructed with normal appendix. There remains nonobstructing bilateral renal micro-calculi and tiny splenic calcified granulomas. No free fluid/air. Remaining liver, gallbladder, pancreas, spleen, adrenal glands, kidneys, ureters, and bladder are unremarkable for noncontrast exam. Again minimal aortic calcifications without AAA. Osseous structures intact again with osteopenia and mild degenerative changes throughout spine. Impression: Again chronic findings including nonobstructing bilateral renal micro-calculi, arteriosclerotic disease, chronic bony findings, and old granulomatous disease. No new/acute findings on this noncontrast exam.
== END 2024-05-05 22:11 | disposition home or self-care (01) ==
LOC: ED 17:04
DX: S29.011A Strain of muscle and tendon of front wall of thorax, initial encounter (principal); R07.9 Chest pain, unspecified; N39.0 Urinary tract infection, site not specified; R10.9 Unspecified abdominal pain; R06.02 Shortness of breath; E78.5 Hyperlipidemia, unspecified; I10 Essential (primary) hypertension; Z79.899 Other long term (current) drug therapy
CPT/HCPCS: 36415; 71250; 74176; 80053; 81001; 82150; 83605; 83690; 83880; 84484; 85025; 85379; 87086; 96374; 96375; 99284; J1171; J2270; A9270-GY